=== PATIENT | male | born 1940 | race Caucasian/White ===

== ENCOUNTER 2016-05-05 01:26 | Inpatient (IN) | payer OTHER ==
--- NOTE | 2016-04-25 12:42 | History & Physical Pre-Op ---
General Information and HPI MD Statement: I have seen and personally examined FANI PÉREZ and documented this H&P. The patient is a 75 year old M who presented with a patient stated chief complaint of right sided neck pain radiating to the right shoulder and arm with numbness and weakness. Source of Information: patient, family, old records, PCP Exam Limitations: no limitations History of Present Illness: Jean is a 75-year-old male who has a history of progressively worsening right- sided neck pain radiating to his right shoulder and arm over the last 3 months. He states he has experienced pins and needles as well as numbness and weakness in his right arm and into his fingers. He does occasionally experience numbness in his left first 3 digits but no significant left sided symptoms other than that. He denies any headaches or dizziness nor any imbalance. He has tried conservative measures which have been ineffective and very temporary in alleviating his symptoms. Because of his progressively worsening symptoms and severe stenosis revealed on his MRI scan, he wants nothing more to do with nonsurgical treatment and has been consented for a staged anterior/posterior cervical decompression and fusion C5-T1 on 05/05/2016. Allergies/Medications Allergies: Coded Allergies: No Known Allergies (04/25/16) Home Med list Amitriptyline HCl 25 MG TABLET 1 TAB PO NIGHTLY SLEEP (Reported) Carvedilol 25 MG TABLET 1 TAB PO BID BP (Reported) Ezetimibe (Zetia) 10 MG TABLET 1 TAB PO DAILY CHOL (Reported) Hydrochlorothiazide 25 MG TABLET 1 TAB PO DAILY BP (Reported) Insulin Admin. Supplies (Novopen Echo) 1 EACH INSULN.PEN 5 UNITS SC BID DM 11 (Reported) BREAKFAST AND LUNCH Insulin Glargine,Hum.rec.anlog (Lantus Solostar) 100 UNIT/ML (3 ML) INSULN.PEN 16 UNITS SC NIGHTLY DM 11 (Reported) Latanoprost (Xalatan) 0.005 % DROPS 1 DROP NIGHTLY GLAUCOMA (Reported) Losartan (Cozaar) 100 MG TABLET 1 TAB PO DAILY BP (Reported) Sumatriptan Succinate (Imitrex) 50 MG TABLET 1 TAB PO PRN PRN MIGRAINE ( Reported) Compliance With Home Meds: GOOD Past History Medical History Neurological: migraine, Hx of Meniere's Disease EENT: hearing loss Cardiovascular: hypertension, hyperlipidemia, systolic CHF Respiratory: asthma Gastrointestinal: NONE Hepatic: NONE Renal: NONE Musculoskeletal: chronic back pain, disk herniation, degen joint disease, osteoarthritis, sciatica, spinal stenosis Psychiatric: depression Endocrine: diabetes Blood Disorders: NONE Cancer(s): NONE 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 Ezetrol 10 mg daily Lantus solo 100 mg ( 60 units ) daily at bedtime Somatriptan 50 mg when necessary headache amitriptyline 25 mg daily at bedtime insulin (Novorapid Flax) 100 mg ( 5 units) twice a day Past Family/Social History Family History Relations & Conditions if any MOTHER ( diabetes mellitus). . FATHER ( COPD). . BROTHER ( ASCVD). . Psychosocial History Where Do You Live? Home Who Do You Live With? spouse Smoking Status: Never Smoked ETOH Use: denies use Illicit Drug Use: denies illicit drug use Employment History Employment: Employed Profession/Employer: [employer] Review of Systems Review of Systems Constitutional: Denies: no symptoms, see HPI. EENTM: Reports: see HPI, hearing changes. Cardiovascular: Reports: see HPI, palpitations. Respiratory: Denies: no symptoms, see HPI. GI: Denies: no symptoms, see HPI. Genitourinary: Denies: no symptoms, see HPI. Musculoskeletal: Reports: see HPI, back pain, joint pain, muscle pain, muscle stiffness, neck pain. Skin: Denies: no symptoms, see HPI. Neurological/Psychological: Reports: see HPI, anxiety, depressed, headache, numbness, paresthesia, tingling, weakness. Hematologic/Endocrine: Denies: no symptoms, see HPI. Immunologic/Allergic: Denies: no symptoms, see HPI. All Other Systems: Reviewed and Negative Exam & Diagnostic Data Physical Exam: height: 5 feet 8 inches Weight 71 kg Physical Exam General Appearance Alert, Oriented X3, Cooperative, No Acute Distress Skin No Rashes, No Breakdown, No Significant Lesion HEENT Atraumatic, PERRLA, EOMI, Mucous Membr. moist/pink Neck Supple, No JVD, No thryomegaly, +2 Carotid Pulse wo Bruit Lymphatic Cervical nl Cardiovascular Regular Rate, Normal S1, Normal S2, No Murmurs Lungs Clear to Auscultation, Normal Air Movement Abdomen Normal Bowel Sounds, Soft, No Tenderness, No Masses Neurological Sensation Intact, DIFFUSELY DIMINSHED BANG. 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 2. Hypertension/ systemic congestive heart failure 3. Insulin-dependent diabetes mellitus 4. Depression/ anxiety 5. Migraines 6. History of Mnire's disease 7. Hypercholesterolemia 8. Hearing loss 9. Status post right and left shoulder surgery, last in December 2015. 10. Status post lumbar laminectomy 11. Status post appendectomy 12. Status post right inguinal hernia repair 13. Status post sinus surgery 14. Status post tonsillectomy and adenoidectomy 15. History of asthma plan: Jean is scheduled for a staged anterior/posterior cervical decompression fusion C5-T1 with instrumentation and iliac crest bone grafting on 05/05/2016. We discussed the surgery in full detail, pre-and postoperative course, follow-up care, and anticipated recovery. We also discussed the risks of surgery not to exclude , paralysis, infection, bleeding, continued pain, failure of the surgery, need for future surgery, DVT, vascular injury, CSF leak, hoarseness, or dysphagia. Given these risks, he still wishes to proceed. Any changes in this patient's plan is based on the patient's outpatient clinical presentation. As Ranked By This Provider Problem List: 1. Hypertension 2. Diabetes mellitus, insulin dependent (IDDM), controlled Attending MD Review Statement Attending Statement Attending MD Statement: examined this patient, discuss w/resident/PA/GROUND SERVICE EQUIPMENT MECHANIC, agreed w/resident/PA/GROUND SERVICE EQUIPMENT MECHANIC, discussed with family, reviewed images
[~2016-05-05] VITALS: Ht 160 cm; Wt 77.1 kg
[~2016-05-05 01:26] MED LIST: AMITRIPTYLINE H25 M2 PO; CARVEDILOL25 M1 PO; COZAAR100 M1 PO; HYDROCHLOROTHIA25 M1 PO; IMITREX50 M1 PO; LANTUS SOL100 UNIT/1 SC; NOVOPEN ECHO1 EACH SC; XALATAN2.5 ML; ZETIA10 M1 PO
--- NOTE | 2016-05-05 12:48 | Operative Report ---
Operative/Inv Procedure Report Surgery Date: 05/05/16 Name of Procedure: Anterior cervical discectomy and decompression C5-C6 C6 7 C7-T1 interdiscal cage placement C5-C6 C6 7 C7-T1 with autologous iliac crest. Anterior plate fixation C5 to C7. Harvesting of morselized iliac crest left anterior crest. Reconstruction crest with Master graft. Use of fluoroscopy partial vertebrectomy anterior inferior aspect of C7. Pre-Operative Diagnosis: Degenerative disc disease and nerve compression C5 through T1 Post-Operative Diagnosis: Same additional diagnoses osteoporosis Estimated Blood Loss: 50ml to 100ml Surgeon/Managed Care Liaison: HELEN RIVERA,NICOLE Macedo M.D. Anesthesia: general endotracheal tube Monitors: Nerve monitor Operative/Procedure Note Note: After adequate general anesthesia was achieved the patient's placed in the supine position with the head turned to the left and the shoulders taped to the side. The risks of the neck and left anterior iliac crest were sterilely prepped and draped. A longitudinal incision was created in the right side of the neck and carried sharply through the platysma. A blunt dissection was carried medial to the neurovascular bundle lateral to the visceral structures and a bent needle was placed within the disc space. Rasp was used to identify surgical level. Deep retractors were placed. Discectomies were performed at C5 6 C6 7 and C7-T1. There was severe degenerative changes at C5 6 and C7-T1. After the decompression the endplates were decorticated all 3 levels with the high-speed bur. The trials were used to select the appropriate size cages. An incision was made over the left anterior iliac crest. A subperiosteal dissection was carried lateral to the crest. The oscillating saw was used to collect cortical cancellus iliac crest morselized bone. The wound was then irrigated packed with Master graft and closed with absorbable suture with verenice in the skin. Cancellus bone was packed within the 3 disc cages. The cages were tamped into position well away from the neural canal. Due to technical considerations the decision was made to place the anterior plate from C5 through C7 and avoid fixation to T1. Reasonable purchase was achieved and all 6 screws from C5 to C7. Osteoporosis was identified during instrumentation 100 harvesting of iliac crest. A decision was made to proceed with a posterior procedure given the instability. The plan will be a posterior decompression and wire fixation from C6 to T1 to sure up the anterior fixation and continue with Y decompression. An aortic laminotomy decompression at C5 6. With lateral crest bone graft from C5 to T1 which was harvested anteriorly. The wound was copiously irrigated and a closure of the platysma was performed with absorbable suture the skin was closed with nylon. After placement of sterile dressings the patient was log rolled into the prone position after Medina tongs were placed in the posterior surgery to follow a separate dictation.
--- NOTE | 2016-05-05 15:02 | Operative Report ---
Operative/Inv Procedure Report Surgery Date: 05/05/16 Name of Procedure: Posterior cervical decompression fusion with laminectomies C5 6 C6 7 C7-T1 bilaterally instrumented fusion with 18-gauge wire C5 6 C67 C7-T1 autologous bone graft fusion C5 to T1 placement of Medina tongs removal of Medina tongs use of fluoroscopy. Pre-Operative Diagnosis: Spinal stenosis and myelopathy C5 6 C6 7 C7-T1 Post-Operative Diagnosis: Same. Additional diagnosis osteoporosis. Estimated Blood Loss: 50ml to 100ml Surgeon/Home Health Aid: HELEN RIVERA,NICOLE BAXTER Anesthesia: general endotracheal tube Monitors: Nerve monitoring Operative/Procedure Note Note: After the anterior surgery was performed the patient was moved to the stretcher Medina tongs were applied and the patient was log rolled onto the operating table. The back of the neck and right posterior iliac crest were sterilely prepped and draped. The midline cervical incision was created sharply and carried down bilaterally over the dorsal elements. A metallic optic was placed and fluoroscopy was used to identify surgical level. The high-speed brendon bur and curettes were used to create keyhole foraminotomies with laminectomies at C5 6 C6 7 C7-T1 after the decompression corticotomies were created in the spinous processes of C5-C6 7 and T1. Wires were passed from C5 to C7 and from C6 to T1 wires were twisted tightened and trimmed and bent to the midline. The facets at all 3 levels were decorticated with the pencil point bur. The dorsal elements were decorticated with the high-speed cutting bur. Bone graft harvested during the anterior surgery was then packed within the facet joints and laterally over the decorticated dorsal elements from C5 to T1 the wound was copiously irrigated Gelfoam was laid over the laminotomy sites and a closure of the cervical fascia and subcutaneous tissue was performed with absorbable suture the skin was closed with verenice fluoroscopy showed appropriate position of the hardware prior to closure after placement of sterile dressings the patient was log rolled off the operating table in the Medina tongs were removed and the patient was taken the recovery room.
--- NOTE | 2016-05-05 17:15 | RADIOLOGY REPORT ---
EXAMINATION: FLUOROSCOPY CERVICAL SPINE IN OPERATING ROOM CLINICAL INFORMATION: C5-T1 fusion in OR. COMPARISON: None. TECHNIQUE: Fluoroscopy was provided in the operating room. 3 spot views were obtained of the cervical spine in the AP and lateral projection. FINDINGS: The AP view demonstrates a fusion device in the lower thoracic spine possibly extending to T1 but it is difficult to determine on the AP view and the lateral views are suboptimal and difficult to evaluate. FLUOROSCOPY TIME: 1 minute and 1 second. DOSE: 2.86 Gycm2. IMPRESSION: Lower cervical spine fusion.
[2016-05-05 18:00] VITALS: BP 144/82
--- NOTE | 2016-05-05 18:12 | PN- Orthopedic ---
Subjective Subjective: Patient received on general surgical floor. Has complaints of pain presently but denies difficulty speaking, breathing, and swallowing. He denies chest pain , shortness of breath and difficulty breathing. He denies nausea and vomitting. He denies numbess to bilateral upper extremities. Objective Vital Signs and I&Os Intake & Output 05/05 1600 05/05 0800 05/05 0000 05/04 1600 05/04 0800 05/04 0000 Intake Total Output Total Balance Patient 170 lb Weight bp 150/70 HR 91 Physical Exam: General: Appearing fatigued but arousable to voice, oriented x3 Cardiac: RRR, s1s2 Pulm: CTA b Abdomen: Non-tender, non-distended Extremities: Moves all extremities, distal sensation intact. Motor 5/5 in bilateral upper extremitiy ultrasonic hand solderer. Skin well perfused. Bilateral calves soft and non-tender Surgical site: Neck: A/P dressing blood tinged, no evidence of hematoma, soft collar in place Current Medications: Current Medications Sig/Milind Start time Last Medication Dose Route Stop Time Status Admin Acetaminophen 650 MG Q4P PRN 05/05 1845 AC PO Amitriptyline HCl 25 MG AT BEDTIME 05/05 2200 AC PO Bisacodyl 10 MG DAILY NEEDED PRN 05/05 1845 AC IL Calcium 600 MG BID 05/05 2200 AC PO Carvedilol 25 MG BID 05/05 2200 AC PO Cefazolin Sodium 1,000 MG IQ8 05/06 0000 AC IV 05/06 1601 Cefazolin Sodium 4,000 MG .STK-MED ONE 05/05 1411 DC IV 05/05 1412 Cefazolin Sodium 2,000 MG ONCE 05/05 0000 NR IV 05/05 2359 Cholecalciferol 1,000 IU DAILY 05/06 1000 AC PO Docusate Sodium 100 MG BID 05/05 2200 AC PO Ezetimibe 10 MG DAILY 05/06 1000 AC PO Hydrochlorothiazide 25 MG DAILY 05/06 1000 AC PO Insulin Aspart 5 UNITS 0800,1200 05/06 0800 CAN SC Insulin Detemir 16 UNITS QPM 05/05 2200 AC SC Insulin Human Regular 0 TIDAC/HS 05/05 2100 AC SC Lactated Ringer's 1,000 ML Q13H 05/05 1900 AC IV Latanoprost 1 GTT AT BEDTIME 05/05 2200 AC OPH Losartan Potassium 100 MG DAILY 05/06 1000 AC PO Magnesium Hydroxide 30 ML AT BEDTIME PRN 05/05 1900 AC PO Morphine Sulfate 1 MG Q3P PRN 05/05 1845 AC IV Multivitamins 1 TAB DAILY 05/06 1000 AC PO Ondansetron HCl 4 MG Q6P PRN 05/05 1845 AC IV Oxycodone/ 1 TAB Q4P PRN 05/05 1845 AC Acetaminophen PO Oxycodone/ 2 TAB Q4P PRN 05/05 1845 AC Acetaminophen PO Patient Medication 1 UNIT ONE NR 05/05 1630 NM Teaching ED 05/05 1700 Patient Medication 1 UNIT ONE NR 05/05 1630 NM Teaching ED 05/05 1700 Patient Medication 1 UNIT ONE NR 05/05 1630 NM Teaching ED 05/05 1700 Trimethobenzamide HCl 200 MG Q6P PRN 05/05 1845 AC IM Assessment/Plan Assessment/Plan This is a 75 year old male, POD 0, s/p a/p cdf c5-t1 with instrumentation for cervical myelopathy. PMH includes diabetes, htn, hld, depression. -Medicine team consulted for comanagement -OOB with PT, soft collar -Percocet and morphine for pain -Consistent carbohydrate diet -DC gonzalez tonight -ALPS for dvt ppx -Ancef for 24 hrs for abx ppx Core Measures/Miscellaneous Venous Thromboembolism VTE Risk Factors: Age > 40, Surgery VTE Contraindications: No Contraindications VTE Prophylaxis Ordered Inpt: Mech & Pharm VTE Diagnosis: No Beta Louis Is Beta Louis a Home Med? No Antibiotics Is Patient on Antibiotics? Yes If Yes: prophylaxis
--- NOTE | 2016-05-05 18:56 | Patient Discharge Instructions ---
Acute Coronary Syndrome Inclusion Criteria At DC or during hospital stay patient has or had the following: ACS DIAGNOSIS No Discharge Core Measures Meds if any: Prescribed or Continued at Discharge Meds if any: NOT Prescribed or Continued at Discharge Congestive Heart Failure Inclusion Criteria At DC or during hospital stay patient has or had the following: CHF DIAGNOSIS No Discharge Core Measures Meds if any: Prescribed or Continued at Discharge Meds if any: NOT Prescribed or Continued at Discharge Cerebrovascular accident Inclusion Criteria At DC or during hospital stay patient has or had the following: CVA/TIA Diagnosis No Discharge Core Measures Meds if any: Prescribed or Continued at Discharge Meds if any: NOT Prescribed or Continued at Discharge Venous thromboembolism Inclusion Criteria VTE Diagnosis No VTE Type NONE VTE Confirmed by (Test) NONE Discharge Core Measures - Per Current guidelines, there needs to be overlap - treatment for the first 5 days of Warfarin therapy. - If discharged on Warfarin prior to 5 days of - overlap therapy, the patient will need to be - assessed for post discharge needs including - *Post discharge parental anticoagulation - *Warfarin and/or parental anticoagulation education - *Follow up date to check INR post discharge At least 5 days overlap therapy as Inpatient No Meds if any: Prescribed or Continued at Discharge Note: Overlap Therapy is Warfarin and Anticoagulant Meds if any: NOT Prescribed or Continued at Discharge
[2016-05-05] MEDS ORDERED: CALCIUM CARBON500 M2 PO (18:57)
[2016-05-05] MEDS ORDERED: BISAC-EVAC10 M1 PR (18:58)
[2016-05-05] MEDS ORDERED: DOCUSATE SODIU100 M3 PO (18:58)
[2016-05-05] MEDS ORDERED: MILK OF MA400 MG/52 PO (18:58)
[2016-05-05] MEDS ORDERED: ONE DAILY MULT1 EAC2 PO (18:59)
[2016-05-05] MEDS ORDERED: PERCOCET 5-3251 EACH PO (19:00)
[2016-05-05] MEDS ORDERED: VITAMIN D31000 UNI2 PO (19:00)
--- NOTE | 2016-05-05 20:09 | Cons- Medical ---
JUVENTINO BRAY 05/05/16 2003: General Information and HPI Consulting Request Date of Consult: 05/05/16 Requested By: NICOLE CERVANTES MD Reason for Consult: Post-op evaluation Source of Information: patient, old records History of Present Illness: This is 75-year-old male with past medical history of hypertension, hyperlipidemia, hearing loss, migraine, diabetes mellitus, osteoarthritis, depression, migraine headache. Patient is status post Posterior cervical decompression fusion with laminectomies C5 6 C6 7 C7-T1 bilaterally instrumented fusion with 18-gauge wire C5 6 C67 C7-T1 autologous bone graft fusion C5 to T1 placement of Medina tongs removal of Medina tongs use of fluoroscopy, also Anterior cervical discectomy and decompression C5-C6 C6 7 C7-T1 interdiscal cage placement C5-C6 C6 7 C7-T1 with autologous iliac crest. Anterior plate fixation C5 to C7. Harvesting of morselized iliac crest left anterior crest. Reconstruction crest with Master graft. Use of fluoroscopy partial vertebrectomy anterior inferior aspect of C7. Patient had history of right shoulder and arm pain for the last 3 months, the patient was hospitalized for that reason and the MRI that was done outside the hospital showed:Severe spinal stenosis of the cervical spine at C5-6, C6-7, and C7-T1 with a syrinx. Patient still complaining of pain status post the procedure. Patient reports numbness and stinging sensation which is chronic due to his underlying diabetes mellitus. Otherwise doing fine, patient denies any chest pain shortness of breath fever or chills abdominal pain, nausea, vomiting, diarrhea, headache, dizziness. Allergies/Medications Allergies: Coded Allergies: No Known Allergies (04/25/16) Home Med List: Amitriptyline HCl 25 MG TABLET 1 TAB PO NIGHTLY SLEEP (Reported) Bisacodyl (Bisac-Evac) 10 MG SUPP.RECT 10 MG IA DAILY NEEDED PRN CONSTIPATION Calcium Carbonate 500 MG CALCIUM (1,250 MG) TABLET 600 MG PO BID BONE HEALTH Carvedilol 25 MG TABLET 1 TAB PO BID BP (Reported) Cholecalciferol (Vitamin D3) 1,000 UNIT TABLET 1,000 IU PO DAILY BONE HEALTH Docusate Sodium 100 MG CAPSULE 100 MG PO BID CONSTIPATION Ezetimibe (Zetia) 10 MG TABLET 1 TAB PO DAILY CHOL (Reported) Hydrochlorothiazide 25 MG TABLET 1 TAB PO DAILY BP (Reported) Hydromorphone HCl (Dilaudid) 2 MG TABLET 1-2 TAB PO Q3P PRN PAIN Insulin Admin. Supplies (Novopen Echo) 1 EACH INSULN.PEN 5 UNITS SC BID DM 11 (Reported) BREAKFAST AND LUNCH Insulin Glargine,Hum.rec.anlog (Lantus Solostar) 100 UNIT/ML (3 ML) INSULN.PEN 16 UNITS SC NIGHTLY DM 11 (Reported) Latanoprost (Xalatan) 0.005 % DROPS 1 DROP NIGHTLY GLAUCOMA (Reported) Losartan (Cozaar) 100 MG TABLET 1 TAB PO DAILY BP (Reported) Magnesium Hydroxide (Milk Of Magnesia) 400 MG/5 ML ORAL.SUSP 30 ML PO AT BEDTIME PRN CONSTIPATION Multivitamin (One Daily Multivitamin) 1 EACH TABLET 1 TAB PO DAILY GENERAL HEALTH Sumatriptan Succinate (Imitrex) 50 MG TABLET 1 TAB PO PRN PRN MIGRAINE ( Reported) Current Medications: Current Medications Sig/Milind Start time Last Medication Dose Route Stop Time Status Admin Acetaminophen 650 MG Q4P PRN 05/05 1845 AC PO Amitriptyline HCl 25 MG AT BEDTIME 05/05 2200 AC PO Bisacodyl 10 MG DAILY NEEDED PRN 05/05 1845 AC IA Calcium 600 MG BID 05/05 2200 AC PO Carvedilol 25 MG BID 05/05 2200 AC PO Cefazolin Sodium 1,000 MG IQ8 05/06 0000 AC IV 05/06 1601 Cefazolin Sodium 4,000 MG .STK-MED ONE 05/05 1411 DC IV 05/05 1412 Cefazolin Sodium 2,000 MG ONCE 05/05 0000 NR IV 05/05 2359 Cholecalciferol 1,000 IU DAILY 05/06 1000 AC PO Docusate Sodium 100 MG BID 05/05 2200 AC PO Ezetimibe 10 MG DAILY 05/06 1000 AC PO Hydrochlorothiazide 25 MG DAILY 05/06 1000 AC PO Insulin Aspart 5 UNITS 0800,1200 05/06 0800 CAN SC Insulin Detemir 16 UNITS QPM 05/05 2200 AC SC Insulin Human Regular 0 TIDAC/HS 05/05 2100 AC SC Lactated Ringer's 1,000 ML Q13H 05/05 1900 AC IV Latanoprost 1 GTT AT BEDTIME 05/05 2200 AC OPH Losartan Potassium 100 MG DAILY 05/06 1000 AC PO Magnesium Hydroxide 30 ML AT BEDTIME PRN 05/05 1900 AC PO Morphine Sulfate 1 MG Q3P PRN 05/05 1845 AC IV Multivitamins 1 TAB DAILY 05/06 1000 AC PO Ondansetron HCl 4 MG Q6P PRN 05/05 1845 AC IV Oxycodone/ 1 TAB Q4P PRN 05/05 1845 AC Acetaminophen PO Oxycodone/ 2 TAB Q4P PRN 05/05 1845 AC Acetaminophen PO Patient Medication 1 UNIT ONE NR 05/05 1630 DC Teaching ED 05/05 1700 Patient Medication 1 UNIT ONE NR 05/05 1630 DC Teaching ED 05/05 1700 Patient Medication 1 UNIT ONE NR 05/05 1630 DC Teaching ED 05/05 1700 Trimethobenzamide HCl 200 MG Q6P PRN 05/05 1845 AC IM Review of Systems Review of Systems Constitutional: Reports: see HPI. Cardiovascular: Reports: see HPI. Respiratory: Reports: see HPI. GI: Reports: see HPI. Genitourinary: Reports: see HPI. Musculoskeletal: Reports: see HPI. Past History Medical History Neurological: migraine, Hx of Meniere's Disease EENT: hearing loss Cardiovascular: hypertension, hyperlipidemia, systolic CHF Respiratory: asthma Gastrointestinal: NONE Hepatic: NONE Renal: NONE Musculoskeletal: chronic back pain, disk herniation, degen joint disease, osteoarthritis, sciatica, spinal stenosis Psychiatric: depression Endocrine: diabetes Blood Disorders: NONE Cancer(s): NONE GENERAL AGENT/Reproductive: NONE Surgical History Surgical History: appendectomy, arthroscopy (right and left shoulder x 8), hernia repair-inguinal (right inguinal;), laminectomy, s/p T & A s/p sinus surgery Family History Relations & Conditions If Any: MOTHER ( diabetes mellitus). . FATHER ( COPD). . BROTHER ( ASCVD). . Psychosocial History Where Do You Live? Home Who Do You Live With? spouse Smoking Status: Never Smoked ETOH Use: denies use Illicit Drug Use: denies illicit drug use Functional Ability ADLs Independent: dressing, eating, toileting, bathing. Ambulation: independent IADLs Independent: shopping, housework, finances, food prep, telephone, transportation , medication admin. Employment History Employment: Employed Profession/Employer: [employer] Exam & Diagnostic Data Last 24 Hrs of Vital Signs/I&O Bp:144/82 HR:77 O2 sat:98% RR:18 Temp:98.0 Physical Exam General Appearance: well developed/nourished, alert, awake, mild distress, C- collar noted Eyes: Bilateral: PERRL, EOMI. Ears, Nose, Throat: normal pharynx Respiratory: normal breath sounds, chest non-tender, no respiratory distress, quiet respiration Cardiovascular: regular rate/rhythm Peripheral Pulses: 2+ radial (R), 2+ radial (L) Gastrointestinal: normal bowel sounds, soft, non-tender Extremities: no edema Last 24 Hrs of Labs/Oj: He.8 Hct:31.6 MCV:93.2 plt count: 104 Diagnostic Data CXR Results EXAM TYPE: RAD - XRY-CERV SPINE 3 VIEWS OR LESS EXAMINATION: FLUOROSCOPY CERVICAL SPINE IN OPERATING ROOM CLINICAL INFORMATION: C5-T1 fusion in OR. COMPARISON: None. TECHNIQUE: Fluoroscopy was provided in the operating room. 3 spot views were obtained of the cervical spine in the AP and lateral projection. FINDINGS: The AP view demonstrates a fusion device in the lower thoracic spine possibly extending to T1 but it is difficult to determine on the AP view and the lateral views are suboptimal and difficult to evaluate. FLUOROSCOPY TIME: 1 minute and 1 second. DOSE: 2.86 Gycm2. IMPRESSION: Lower cervical spine fusion. Assessment/Plan Assessment/Plan This is 75-year-old male with past medical history of hypertension, hyperlipidemia, hearing loss, migraine, diabetes mellitus, osteoarthritis, depression, migraine headache. Patient is status post Anterior and Posterior cervical. Recommendation: -Please check Accu-Chek and vital signs -Accu-Chek, consistent carbohydrate diet with short-acting insulin sliding scale. -Restart the patient home medication. -EKG in the morning to get the baseline. -DC Jones catheter if no longer needed. -Recheck CBC in the morning. -We'll continue follow the patient. Consult Acknowledgment - Thank you for your consult request. ROBERT PEARSON 05/05/16 2627: Assessment/Plan Consult Acknowledgment - Thank you for your consult request. Attending MD Review Statement Attending Statement Attending MD Statement: examined this patient, discuss w/resident/PA/DIRECTOR OF MIDWIFERY/STAFF MIDWIFE, agreed w/resident/PA/DIRECTOR OF MIDWIFERY/STAFF MIDWIFE, reviewed EMR data (avail), reviewed images, amended to note Attending Assessment/Plan: PMHx: HTN, IDDM, HLD, hearing loss, osteoarthritis Patient underwent cervical decompression fusion with laminectomy. We were asked for medical comanagement for diabetes hypertension. Patient's PCP in [facility], [place], regularly follows up with him. Patient denies chest pain, shortness of breath, abdominal pain, nausea vomiting, constipation, fever or any weakness. He had pain bilateral upper extremity after the surgery which is much better now. Patient underwent 2-D echo before surgery which shows mild concentric LVH with ejection fraction of 65%. Patient denies any dyspnea on exertion, orthopnea, extremity swellings. Communication barrier because of language and hearing loss. Vitals: Pulse 91, blood pressure 150/75 On exam: A O 3, no acute distress, cervical collar present, no focal neurological deficit, cranial nerves intact, mucosa moist. CVS: S1-S2, RRR. RS: Bilateral air entry clear present abdomen: Obese, soft, NT, bowel sounds present. No pedal edema no obvious skin rashes or inflammations. Labs: CBC, BMP, LFT reviewed unremarkable. A and P #1 DM: Patient uses insulin at home, continue his basal insulin (long-acting), 16 units as ordered, continue short-acting (patient currently appears to be on regular: Change to aspart) pre-meal sliding scale. Accu-Cheks pre-meal and at bedtime. If patient is not nothing by mouth. If patient is nothing by mouth continue nothing by mouth sliding scale short-acting insulin. #2 HTN: Continue Coreg, losartan, HCTZ (all his home medications) #3 continue amitriptyline Appreciate consult we will follow along.
[2016-05-06 00:07] VITALS: BP 150/82
--- NOTE | 2016-05-06 01:26 | NUR ---
1800 PATIENT ARRIVED TO FLOOR. ALERT AND ORIENTED X 3. VITAL SIGNS STABLE DENIES CHEST PAIN. + PULSES. LUNGS CLEAR. ON 3L O2 VIA NC. BED LOW AND LOCKED. CALL LIGHT WITHIN REACH. 1999 ON 1.5L OXYGEN VIA NASAL CANNULA. O2SAT 94%. WILL CONTINUE TO MONITOR
[2016-05-06 08:24] LABS: ABSOLUTE BASOPHIL COUNT 0 /CUMM (0.0-0.2); ABSOLUTE EOSINOPHIL COUNT 0.1 /CUMM (0.0-0.7); ABSOLUTE LYMPH COUNT 0.5 /CUMM (1.2-3.4)
[2016-05-06 08:34] VITALS: BP 144/80
[2016-05-06 09:13] VITALS: BP 144/68
[2016-05-06 09:14] LABS: ABSOLUTE GRANULOCYTE CT 8.5 /CUMM (1.4-6.5); ABSOLUTE MONOCYTE COUNT 0.6 /CUMM (0.10-0.60); BASOPHIL % 0 % (0.0-2.0); EOSINOPHIL % 1.1 % (0-5); GRANULOCYTE % 88.2 % (42.2-75.2); MEAN CORPUSCULAR HGB 31.9 PG (27.0-31.0); MEAN CORPUSCULAR HGB CONC 34.2 G/DL (33.0-37.0); MEAN CORPUSCULAR VOLUME 93.2 FL (80.0-94.0); PLATELET COUNT 104 /CUMM (130-400); RBC DISTRIBUTION WIDTH 12.5 % (11.5-14.5); WHITE BLOOD CELL COUNT 9.6 /CUMM (4.8-10.8)
--- NOTE | 2016-05-06 09:19 | PN- Orthopedic ---
Subjective Subjective: POD #1 s/p anterior/posterior cervical fusion with ICBG. Resting uncomfortably in bed, complaining of pain to neck. States he has not received anything since earlier in the night. Denies N/V, F/C, CP/SOB. Yet to ambulate. Voiding spontaneously. Objective Vital Signs and I&Os Vital Signs Date Time Temp Pulse Resp B/P Pulse O2 O2 Flow FiO2 Ox Delivery Rate 05/06 0834 98.4 98 20 144/80 94 Room Air 05/06 0007 98.2 102 20 150/82 96 05/06 0000 94 Nasal 1.5L Cannula 05/05 2137 91 150/75 05/05 1800 97.9 77 20 144/82 98 Nasal 3.0L Cannula 05/05 1800 98 Nasal 3.0L Cannula Intake & Output 05/06 1600 05/06 0800 05/06 0000 05/05 1600 05/05 0800 05/05 0000 Intake Total 850 Output Total 750 Balance 100 Intake, IV 600 Intake, Oral 250 Output, Urine 750 Patient 170 lb Weight Physical Exam: Gen: AAox3 in NAD HEENT: soft collar removed, dressing C/D/I. No evidence of soft tissue mass to suggest hematoma. Cor: S1+S2+ Lungs: CTA gema Abd: soft, NT, ND, +BSx4 Ext: strength 5/5 in gema upper extremities. Sensation grossly intact. Palpable radial pulses. Results Last 48 Hours of Labs: Laboratory Tests 05/06 0615 Hematology CBC w Diff Pending WBC Pending RBC Pending Hgb Pending Hct Pending MCV Pending MCH Pending RDW Pending Plt Count Pending MPV Pending PUBS MCHC Pending Assessment/Plan Assessment/Plan A: POD #1 s/p ACDF/PCDF with ICBG; AVSS. Plan: Regular diet. To get pain meds after interview (RN aware). OOB and ambulate as tolerated. IVF stopped. Continue perioperative abx for surgical prophylaxis (scheduled to be stopped after 3 doses). Core Measures/Miscellaneous Venous Thromboembolism VTE Risk Factors: Age > 40, Surgery VTE Contraindications: No Contraindications VTE Prophylaxis Ordered Inpt: Mech & Pharm VTE Diagnosis: No Beta Louis Is Beta Louis a Home Med? No Antibiotics Is Patient on Antibiotics? Yes If Yes: prophylaxis
[2016-05-06 09:21] LABS: HEMATOCRIT 31.6 % (42-52); RED BLOOD CELL CT 3.39 /CUMM (4.70-6.10)
--- NOTE | 2016-05-06 10:16 | PN- Att Addend ---
Attending Addendum Attending Brief Note Patient seen and examined. Sitting in his chair. Complains of neck pain. Some abdominal discomfort. Denies nausea vomiting. Reports last bowel movement was 3 days prior. His blood glucose levels have been acceptable. Vital Signs Date Time Temp Pulse Resp B/P Pulse O2 O2 Flow FiO2 Ox Delivery Rate 05/06 0913 99 144/68 05/06 0913 99 144/68 05/06 0834 98.4 98 20 144/80 94 Room Air 05/06 0007 98.2 102 20 150/82 96 05/06 0000 94 Nasal 1.5L Cannula 05/05 2137 91 150/75 05/05 1800 97.9 77 20 144/82 98 Nasal 3.0L Cannula 05/05 1800 98 Nasal 3.0L Cannula Gen. appearance: Not in respiratory distress. HEENT: Anicteric, no pallor. Neck collar in place Heart: S1-S2 regular Lungs: Good entry bilaterally, clear to auscultation Abdomen: Soft, nontender with normal bowel sounds Extremities: No pedal edema. Skin intact with no rashes. Laboratory Tests 05/06/16 0615: CBC w Diff MAN DIFF ORDERED, RBC 3.39 L, MCV 93.2, MCH 31.9 H, RDW 12.5, MPV 9.0, Gran % 88.2 H, Lymphocytes % 4.7 L, Monocytes % 6.0, Eosinophils % 1.1, Basophils % 0 L, Absolute Granulocytes 8.5 H, Segmented Neutrophils 81 H, Band Neutrophils 9 H, Absolute Lymphocytes 0.5 L, Lymphocytes 3 L, Monocytes 4, Absolute Monocytes 0.6, Eosinophils 2, Absolute Eosinophils 0.1, Basophils 1, Absolute Basophils 0, Platelet Estimate DECREASED, Hypochromic-Microcytic 1+, Anisocytosis 1+, PUBS MCHC 34.2 Problems: 1. Insulin-dependent diabetes mellitus 2. Constipation 3. Status post neck surgery 4. Anemia; likely secondary to expected blood loss. 5. Prerenal azotemia Plan: -Continue patient on his home insulin regimen. -IV fluids have been discontinued. Recommend repeating his serum chemistry t omorrow to ensure that his prerenal azotemia has improved as well. -His anemia is likely secondary to expected blood loss. Would recommend ensuring his hemoglobin level is stable prior to discharge. -Please administer his bowel regimen to resolve his constipation. If abdominal discomfort persists after moving his bowels would recommend an abdominal x-ray. -Thank you for this consultation. We'll continue to follow. Case discussed with nursing staff.
[2016-05-06] MEDS ORDERED: DILAUDID2 M1 PO (15:01)
--- NOTE | 2016-05-06 15:02 | Surg Short-stay <48hrs Dis Sum ---
Visit Information Visit Dates Admission Date: 05/05/16 Discharge Date: 05/06/16 Surgical Short Stay DC Summary Admission Diagnosis: Spinal stenosis and myelopathy C5 6 C6 7 C7-T1 Final Diagnosis: SAME Procedure(s): Anterior cervical discectomy and decompression C5-C6 C6 7 C7-T1 interdiscal cage placement C5-C6 C6 7 C7-T1 with autologous iliac crest. Anterior plate fixation C5 to C7. Harvesting of morselized iliac crest left anterior crest. Reconstruction crest with Master graft. Use of fluoroscopy partial vertebrectomy anterior inferior aspect of C7. Posterior cervical decompression fusion with laminectomies C5 6 C6 7 C7-T1 bilaterally instrumented fusion with 18-gauge wire C5 6 C67 C7-T1 autologous bone graft fusion C5 to T1 placement of Medina tongs removal of Medina tongs use of fluoroscopy. Summary/Significant Findings: Mr. Suarez is a 75 year old male admitted on after an anterior and posterior cervical discectomy/fusion by Dr. Jude Renee. He was ultimately transferred to the surgical floor in stable condition. His diet was advanced and he was able to void spontaneously. On POD #1, his pain was not controlled well and he was converted from Percocet to Dilaudid PO. He did well with Dilaudid and was discharged home, with outpatient follow-up with Dr. Renee as scheduled. Condition at Discharge: stable Discharge Disposition: home or self care Discharge instructions provided to patient/family: Yes Post discharge follow-up plan: Dr. Renee per schedule
== END 2016-05-06 17:08 | DRG 472 ==
LOC: ENRESERVDT → ENRESERVTM → SDA 01:26 → 2NB 17:35
PROVIDERS: Orthopaedic Surgery Orthopaedic Surgery of the Spine; ADMIT Orthopaedic Surgery Orthopaedic Surgery of the Spine
PROC: 0RB30ZZ Excision of Cervical Vertebral Disc, Open Approach (ICD-10-PCS; principal; 2016-05-05)
PROC: 0RG20A0 Fusion of 2 or more Cervical Vertebral Joints with Interbody Fusion Device, Anterior Approach, Anterior Column, Open Approach (ICD-10-PCS; 2016-05-05)
PROC: 0RB50ZZ Excision of Cervicothoracic Vertebral Disc, Open Approach (ICD-10-PCS; 2016-05-05)
PROC: 0RG40A0 Fusion of Cervicothoracic Vertebral Joint with Interbody Fusion Device, Anterior Approach, Anterior Column, Open Approach (ICD-10-PCS; 2016-05-05)
DX: M48.02 Spinal stenosis, cervical region (principal); M50.03 Cervical disc disorder with myelopathy, cervicothoracic region; M48.03 Spinal stenosis, cervicothoracic region
CPT/HCPCS: 36415; 72040; 88304; 97110-GO; 97161-GP; 97530-GO; C9399; J0690; J2270; J2405; J3250; J3490; J7120

== ENCOUNTER 2016-09-28 02:41 | Inpatient (IN) | payer OTHER ==
[~2016-09-28] VITALS: Ht 154.9 cm; Wt 77.1 kg
[~2016-09-28 02:41] MED LIST changes: +BISAC-EVAC10 M1 PR; +CALCIUM CARBON500 M2 PO; +DILAUDID2 M1 PO; +DOCUSATE SODIU100 M3 PO; +MILK OF MA400 MG/52 PO; +ONE DAILY MULT1 EAC2 PO; +PERCOCET 5-3251 EACH PO; +VITAMIN D31000 UNI2 PO
--- NOTE | 2016-09-28 15:23 | Operative Report ---
Operative/Inv Procedure Report Surgery Date: 09/28/16 Name of Procedure: Lumbosacral inspection of fusion mass L5-S1. Revision laminectomies L4 L5 S1. Interdiscal cage placement L5-S1 left side with autologous iliac crest morselized bone implant. Harvesting of morselized bone right posterior iliac crest. Reconstruction of donor site with Master graft implant. Pedicle screw placement L5-S1 bilaterally. Discectomy foraminotomy L4 5 L5-S1. Neuro lysis right L5 nerve root. Lateral intertransverse process fusion L4 5 L5-S1. Pre-Operative Diagnosis: Spinal stenosis L4 5 L5-S1 Post-Operative Diagnosis: Same Estimated Blood Loss: 950cc Surgeon/Group Contract Analyst: HELEN RIVERA,NICOLE BAXTER Anesthesia: general endotracheal tube Monitors: Neuro Operative/Procedure Note Note: After adequate general anesthesia was achieved the patient was placed in the prone position with the shoulders and arms in neutral position and all bony prominences padded. The back was sterilely prepped and draped along with the midline and right posterior iliac crest. The previous incision was used and carried down sharply over the dorsal elements with electrocautery of the scalpel. The deep retractors were placed. There are areas where there islands of bone graft which were easily removed there was an obvious nonunion at L5-S1. There is bone graft within the laminectomy area which was removed from the canal with the Kerrison and curettes. This was on the right side. There is motion between L4 5 and L5-S1. The high-speed bur was used to take down the degenerative tissue and bone graft. Laminectomies of L4 and L5 were performed on the right side the dissection was carried laterally and the discectomy was performed at that level on the right side. There is extreme thickening of the ligamentum flavum causing severe foraminal stenosis and a partial facetectomy was performed decompressing the associated L4 nerve root. The high-speed bur was used to debride the scar tissue and bone graft at L5-S1 on the right side there is severe stenosis with complete obliteration of the canal with degenerative tissue graft and scar tissue which was all debrided under lysis of the L5 nerve root was performed to free it up was markedly trapped in scar tissue and degenerative tissue along with disc material. Spurs which were performed posteriorly at the L5-S1 disc were debrided with the cystic severe stenosis. The disc space was debrided with the interdiscal cage instrumentation. Using a 12 mm thick cage was identified as appropriate. Through a separate incision in the iliac crest on the right side the dissection was carried medial and lateral to the crest. The osteotomes and curettes were used to collect cortical cancellus morcellized bone graft the wound was irrigated packed with Master graft and closed in layers with absorbable suture with verenice in the skin. A 12 mm cage was packed with cancellus iliac crest bone graft and tamped into position under fluoroscopic guidance. The cage was very stable and there was slight distraction created between the disc space from the cage was placed. Laminectomies were created on the left side in preparation for placement of pedicle screws due to the severe degenerative changes of the disc space in order to accommodate identification of anatomy. Corticotomies were created and the pedicles of L4 and L5 bilaterally the pedicles were tapped and screws were placed in direct vision was used to monitor the pedicles and there was no evidence of metal within the canal. Neuro monitoring was performed in all 4 screws screws showed no response. Rods were placed the right side was compress the left side was held in neutral. Counter torque device was used to tighten the pedicle screw caps. The facet joints at L5 and S1 were decorticated with a pencil point bur the the lateral intertransverse process region was decorticated bilaterally at all 5 S1 unilateral at L4 5 on the right the morselized autologous bone graft was packed at L4 5 and L5-S1 bilaterally. The wound was copiously irrigated the construct was checked in AP lateral and oblique views and found to be appropriate using fluoroscopy. Was again irrigated Gelfoam was laid over the laminotomy sites and a closure the lumbodorsal fascia was performed with absorbable suture the skin was closed with verenice Cell Saver was used throughout the case. After placement of sterile dressings the patient was log rolled off the operating table
--- NOTE | 2016-09-28 16:08 | RADIOLOGY REPORT ---
EXAMINATION: XR LUMBOSACRAL SPINE CLINICAL INFORMATION: Instrumented lumbar laminectomy and fusion L4-S1. COMPARISON: None TECHNIQUE: Intraoperative fluoroscopic imaging of the lumbosacral spine was utilized. NUMBER OF SAVED IMAGES: 2 (AP and lateral views of the lumbosacral junction) FLUOROSCOPY TIME: 0.12 minutes FINDINGS: The submitted images show evidence of discectomy and fusion at L5-S1. The short posterior fusion rods and transpedicular screws are in their expected positions. IMPRESSION: Status post L5-S1 fusion.
[2016-09-28 16:18] LABS: ABSOLUTE BASOPHIL COUNT 0 /CUMM (0.0-0.2); ABSOLUTE EOSINOPHIL COUNT 0.1 /CUMM (0.0-0.7); ABSOLUTE LYMPH COUNT 1.7 /CUMM (1.2-3.4); BASOPHIL % 0.3 % (0.0-2.0); EOSINOPHIL % 0.7 % (0-5)
[2016-09-28 16:22] LABS: ABSOLUTE GRANULOCYTE CT 10.9 /CUMM (1.4-6.5); ABSOLUTE MONOCYTE COUNT 0.7 /CUMM (0.10-0.60); MEAN CORPUSCULAR HGB 30.9 PG (27.0-31.0); MEAN CORPUSCULAR VOLUME 90.9 FL (80.0-94.0); MEAN PLATELET VOLUME 7.9 FL (7.4-10.4); PLATELET COUNT 120 /CUMM (130-400); RBC DISTRIBUTION WIDTH 13.6 % (11.5-14.5)
[2016-09-28 16:23] LABS: WHITE BLOOD CELL COUNT 13.5 /CUMM (4.8-10.8)
[2016-09-28 16:24] LABS: GRANULOCYTE % 81.2 % (42.2-75.2); HEMATOCRIT 34.6 % (42-52)
[2016-09-28] MEDS ORDERED: ONE DAILY MULT1 EAC2 PO (17:04)
[2016-09-28] MEDS ORDERED: VITAMIN D31000 UNI2 PO (17:04)
[2016-09-28] MEDS ORDERED: TYLENOL325 M1 PO (17:04)
[2016-09-28] MEDS ORDERED: DOCUSATE SODIU100 M3 PO (17:04)
[2016-09-28] MEDS ORDERED: MILK OF MA400 MG/52 PO (17:04)
[2016-09-28] MEDS ORDERED: CALCIUM CARBON500 M2 PO (17:04)
[2016-09-28] MEDS ORDERED: PERCOCET 5-3251 EACH PO (17:04)
[2016-09-28] MEDS ORDERED: BISAC-EVAC10 M1 PR (17:04)
[2016-09-28 18:02] VITALS: BP 110/64
--- NOTE | 2016-09-28 18:02 | NUR ---
AT THIS TIME PT ADMITTED TO ROOM 206- FROM THE PACU, PT VSS, DENIES CP, DENIES SOB, A/O/VX3, ON 2LNC, DSG TO LOWER BACK C/D/I, +CMS, C/O 10 OUT OF 10 PAIN, PRN PAIN MED GIVEN, FALL RISK PRECAUTIONS IN PLACE, SAFETY MAINTAINED, NEEDS WITHIN REACH
--- NOTE | 2016-09-28 19:23 | Cons- Medical ---
JAX JEFFERS 09/28/16 1829: General Information and HPI Consulting Request Date of Consult: 09/28/16 Requested By: NICOLE CERVANTES MD Reason for Consult: Co management of diabetes and Source of Information: patient, family Exam Limitations: no limitations History of Present Illness: Patient is 75-year-old male, resident of [facility], past medical history significant for insulin-dependent diabetes mellitus, hypertension and hyperlipidemia,hearing loss, migraine, diabetes mellitus, osteoarthritis, depression, migraine headache,sever spinal stenosis has been admitted to [facility] under surgical service for spinal stenosis surgery admitted to [facility] for spinal surgery. Patient had surgery today under general anesthesia involving Lumbosacral inspection of fusion mass L5-S1 with revision laminectomies L4 L5 S1. Pt tolerated the surgery well, still reports pain around the surgical site. Denies any dizziness, trouble breathing palpitations. Denies any nausea vomiting abdominal discomfort. No urinary bowel habit complaints. Vitals are stable. Recent blood sugar level is 173. Diet has been resumed, but patient's appetite still remains low. Allergies/Medications Allergies: Coded Allergies: No Known Allergies (04/25/16) Home Med List: Acetaminophen (Tylenol) 325 MG TABLET 650 MG PO Q4P PRN TEMP > 101.5 Bisacodyl (Bisac-Evac) 10 MG SUPP.RECT 10 MG AL DAILY NEEDED PRN CONSTIPATION Calcium Carbonate 500 MG CALCIUM (1,250 MG) TABLET 600 MG PO BID [facility] Carvedilol 25 MG TABLET 1 TAB PO DAILY HTN (Reported) Cholecalciferol (Vitamin D3) 1,000 UNIT TABLET 1,000 IU PO DAILY [facility] Docusate Sodium 100 MG CAPSULE 100 MG PO TID CONSTIPATION Ezetimibe (Zetia) 10 MG TABLET 1 TAB PO DAILY CHOL (Reported) Hydrochlorothiazide 25 MG TABLET 1 TAB PO DAILY BP (Reported) Insulin Admin. Supplies (Novopen Echo) 1 EACH INSULN.PEN 5 UNITS SC BID DM 11 (Reported) BREAKFAST AND LUNCH Insulin Glargine,Hum.rec.anlog (Lantus Solostar) 100 UNIT/ML (3 ML) INSULN.PEN 16 UNITS SC NIGHTLY DM 11 (Reported) Latanoprost (Xalatan) 0.005 % DROPS 1 DROP NIGHTLY GLAUCOMA (Reported) Losartan (Cozaar) 100 MG TABLET 1 TAB PO DAILY BP (Reported) Magnesium Hydroxide (Milk Of Magnesia) 400 MG/5 ML ORAL.SUSP 30 ML PO AT BEDTIME PRN CONSTIPATION Multivitamin (One Daily Multivitamin) 1 EACH TABLET 1 TAB PO DAILY [facility] Oxycodone HCl/Acetaminophen (Percocet 5-325 MG Tablet) 5 MG-325 MG TABLET 2 TAB PO Q4P PRN PAIN SCALE 4-6 (MODERATE) 1-2 TABS PO Q 4-6 HRS PRN PAIN Review of Systems Review of Systems Constitutional: Denies: diaphoresis, fever, malaise. EENTM: Denies: blurred vision, double vision, visual changes, eye pain. Cardiovascular: Denies: chest pain, edema, orthopena. Respiratory: Denies: cough, hemoptysis, orthopnea. GI: Denies: abdominal pain, bloating, constipation. Genitourinary: Denies: discharge, dysuria, frequency. Musculoskeletal: Denies: back pain, gout, joint pain. Skin: Denies: change in skin color, change in hair/nails, dryness. Past History Medical History Neurological: migraine, Hx of Meniere's Disease EENT: hearing loss Cardiovascular: hypertension, hyperlipidemia, systolic CHF Respiratory: asthma Gastrointestinal: NONE Hepatic: NONE Renal: NONE Musculoskeletal: chronic back pain, disk herniation, degen joint disease, osteoarthritis, sciatica, spinal stenosis Psychiatric: depression Endocrine: diabetes Blood Disorders: NONE Cancer(s): NONE COIL PLACER/Reproductive: NONE Surgical History Surgical History: appendectomy, arthroscopy (right and left shoulder x 8), hernia repair-inguinal (right inguinal;), laminectomy, s/p T & A s/p sinus surgery s/p ACDF/PCDF C5-T1 with Instr./ICBG 05/05/16 Family History Relations & Conditions If Any: MOTHER ( diabetes mellitus). . FATHER ( COPD). . BROTHER ( ASCVD). . Psychosocial History Who Do You Live With? spouse Smoking Status: Unknown If Ever Smoked Functional Ability ADLs Independent: dressing, eating, toileting, bathing. Ambulation: independent IADLs Independent: shopping, housework, finances, food prep, telephone, transportation , medication admin. Exam & Diagnostic Data Last 24 Hrs of Vital Signs/I&O Vital Signs Date Time Temp Pulse Resp B/P B/P Pulse O2 O2 Flow FiO2 Mean Ox Delivery Rate 09/28 1802 97.6 84 18 110/64 96 Nasal 2.0L Cannula Physical Exam General Appearance: well developed/nourished, no apparent distress Head: atraumatic, normal appearance Respiratory: normal breath sounds, chest non-tender Cardiovascular: regular rate/rhythm, edema Gastrointestinal: normal bowel sounds, soft, non-tender Last 24 Hrs of Labs/Oj: Laboratory Tests 09/28/16 1000: CBC w Diff NO MAN DIFF REQ, RBC 3.80 L, MCV 90.9, MCH 30.9, RDW 13.6, MPV 7.9, Gran % 81.2 H, Lymphocytes % 12.6 L, Monocytes % 5.2, Eosinophils % 0.7, Basophils % 0.3, Absolute Granulocytes 10.9 H, Absolute Lymphocytes 1.7, Absolute Monocytes 0.7 H, Absolute Eosinophils 0.1, Absolute Basophils 0, PUBS MCHC 34.0 Assessment/Plan Assessment/Plan Patient is 75-year-old male with past medical history significant for insulin- dependent diabetes mellitus, hypertension and hyperlipidemia,hearing loss, migraine, diabetes mellitus, osteoarthritis, depression, migraine headache,sever spinal stenosis has been admitted to [facility] under surgical service for spinal stenosis surgery s/p Lumbosacral inspection of fusion mass L5-S1 with revision laminectomies L4 L5 S1. We are consulted for management of diabetes mellitus and hypertension Plan: Hypertension: * Blood pressure is currently stable. * Restart antihypertensives including Coreg, losartan and hydrochlorothiazide in the morning. * Monitor vitals every 4 hours. History of insulin-dependent diabetes mellitus: * Patient has resulted on NovoLog sliding scale. * Sugar levels are currently stable, if appetite still remains low consider decreasing the dose of long-acting insulin Levemir to 8-10 units at bedtime. * Accu-Cheks with carbohydrate consistent diet Spinal stenosis surgery s/p Lumbosacral surgery (postop day 0) * Continue pain management as per surgery. Consult Acknowledgment - Thank you for your consult request. ROBERT PEARSON 09/29/16 0317: Assessment/Plan Consult Acknowledgment - Thank you for your consult request. Attending MD Review Statement Attending Statement Attending MD Statement: examined this patient, discuss w/resident/PA/STARTER MECHANIC, agreed w/resident/PA/STARTER MECHANIC, reviewed EMR data (avail), reviewed images, amended to note Attending Assessment/Plan: CC : medical consult for DM and HTN management PMHx: HTN, IDDM, HLD, osteoarthritis Patient underwent revision lumbar laminectomy decompression/fusion L4-S1 today. We were asked for medical comanagement for diabetes and hypertension. Patient's PCP in [facility], regularly follows up with him. Patient denies chest pain, shortness of breath, abdominal pain, nausea vomiting, constipation, fever or any weakness. Patient denies any dyspnea on exertion, orthopnea, extremity swellings. Vitals: unremarkable On exam: A O 3, no acute distress, no focal neurological deficit, cranial nerves intact, mucosa moist. CVS: S1-S2, RRR. RS: Bilateral air entry clear present abdomen: Obese, soft, NT, bowel sounds present. No pedal edema no obvious skin rashes or inflammations. Labs: CBC,reviewed unremarkable except low H and H. BMP and LFT reviewed from September 27 Unremarkable A and P #1 DM: Patient uses insulin at home : lantus 16 units and short acting (aspart) 5 units 2 times. continue his basal insulin 16 units, readjust if hypoglycemic, continue short-acting pre-meal sliding scale. Accu-Cheks pre-meal and at bedtime. #2 HTN: Patient underwent 2-D echo in apr 2016 which shows mild concentric LVH with ejection fraction of 65%. Continue Coreg, losartan, HCTZ (all his home medications) #3 continue amitriptyline # repeat CBc, BMP in Am for low H and H and r/o azotemia. Appreciate consult we will follow along.
--- NOTE | 2016-09-28 22:40 | PN- Orthopedic ---
Subjective Subjective: Postop check Pt is resting comfortably. Per RN, he had some difficulty falling asleep, so I deferred exam for now. Per reports, pain was well controlled. No nausea, but minimal appetite. Tolerating liquids. Still awaiting void. Objective Vital Signs and I&Os Vital Signs Date Time Temp Pulse Resp B/P B/P Pulse O2 O2 Flow FiO2 Mean Ox Delivery Rate 09/28 2126 Nasal 1.0L Cannula 09/28 1801 Nasal 2.0L Cannula 09/28 1801 97.6 84 18 110/64 96 Nasal 2.0L Cannula Intake & Output 09/28 1600 09/28 0800 09/28 0000 09/27 1600 09/27 0800 09/27 0000 Intake Total Output Total Balance Patient 170 lb Weight Physical Exam: Gen: PT is resting comfortably. Exam was deferred to allow pt to sleep. Assessment/Plan Assessment/Plan Pt is a 75 yo M with a hx of htn and diabetes who is now POD #0 s/p revision lumbar laminectomy decompression/fusion L4-S1. Plan: -Pain control percocet or morphine as needed. -Advance diet as tolerated. Continue IVF for now until tolerating po. -Home meds resumed, including b louis. Monitor fasting blood sugars. Decrease evening levemir dose if appetite remains poor (per medicine recommendations). -Pt may be OOB/ambulate with assistance as tolerated. -Alps for DVT ppx. -Ancef x 24 hours for ppx. -Colace TID to prevent constipation. -Plan for dressing change POD #2. Core Measures/Miscellaneous Venous Thromboembolism VTE Risk Factors: Age > 40 VTE Contraindications: No Contraindications No Pharm VTE Prophylaxis D/T: Surgical Contraindication VTE Diagnosis: No Beta Louis Is Beta Louis a Home Med? Yes If Yes, Was This Ordered Today? Yes Antibiotics Is Patient on Antibiotics? Yes If Yes: prophylaxis
[2016-09-28 22:45] VITALS: BP 140/68
[2016-09-29 06:06] VITALS: BP 108/60
--- NOTE | 2016-09-29 07:13 | PN- Medicine Consult ---
JAX JEFFERS 09/29/16 0712: Assessment/Plan Assessment/Plan Assessment: Patient is 75-year-old male with past medical history significant for insulin- dependent diabetes mellitus, hypertension and hyperlipidemia,hearing loss, migraine, diabetes mellitus, osteoarthritis, depression, migraine headache,sever spinal stenosis has been admitted to [facility] under surgical service for spinal stenosis surgery s/p Lumbosacral inspection of fusion mass L5-S1 with revision laminectomies L4 L5 S1. We are consulted for management of diabetes mellitus and hypertension Plan: Plan: Hypertension: * Blood pressure is is currently borderline(blood pressure is borderline 108/60 saturating more than 92% on 2 L) * Restart antihypertensives including Coreg, losartan and hydrochlorothiazide . * Hold antihypertensives for blood pressure less than 90/60 * Monitor vitals every 4 hours. History of insulin-dependent diabetes mellitus: * Patient's appetite still remains low. * Continue with the short-acting NovoLog sliding scale. * Continue with home dose of Levemir 16 units at bedtime. * Accu-Cheks with carbohydrate consistent diet Spinal stenosis surgery s/p Lumbosacral surgery (postop day 0) * Patient is reporting 7/10 pain, consider increasing the dose of IV morphine. * Continue Percocet * Continue other management as per surgery. Problem List: 1. Hypertension 2. Diabetes mellitus, insulin dependent (IDDM), controlled Subjective Subjective: Patient is seen and examined the morning, still reports 7/10 pain at the surgical site, not well controlled with low-dose IV morphine. Denies any chest discomfort or breathing or any palpitations. Appetite still remains low denies any nausea vomiting or any abdominal discomfort. Last 3 finger sugar sticks (170, 170, 170), blood pressure is borderline 108/60 saturating more than 92% on 2 L Review of Systems Constitutional: Denies: diaphoresis, fever, malaise. EENTM: Denies: blurred vision, double vision, visual changes. Cardiovascular: Denies: chest pain, edema, orthopena. Respiratory: Denies: cough, hemoptysis, orthopnea. Gastrointestinal: Denies: abdominal pain, bloating, constipation, diarrhea. Genitourinary: Denies: dysuria, frequency, hematuria. Musculoskeletal: Denies: gout, joint pain. Skin: Denies: cysts, change in skin color, change in hair/nails. Neurological/Psychological: Denies: anxiety, ataxia, confusion. Objective Last 24 Hrs of Vital Signs/I&O Vital Signs Date Time Temp Pulse Resp B/P B/P Pulse O2 O2 Flow FiO2 Mean Ox Delivery Rate 09/29 605 98.4 105 22 108/60 92 Nasal 2.0L Cannula 09/29 0000 Nasal 2.0L Cannula 09/28 2245 97.7 92 20 140/68 96 09/28 212 Nasal 1.0L Cannula 09/28 1801 Nasal 2.0L Cannula 09/28 1801 97.6 84 18 110/64 96 Nasal 2.0L Cannula Intake & Output 09/29 0800 09/29 0000 09/28 1600 Intake Total 880 840 Output Total 700 350 Balance 180 490 Intake, IV 640 240 Intake, Oral 240 600 Output, Urine 700 350 Patient 170 lb Weight Weight Reported by Patient Measurement Method Physical Exam General Appearance: well developed/nourished, mild distress Head: atraumatic, normal appearance Ears, Nose, Throat: normal pharynx, normal ENT inspection Neck: normal inspection, supple Cardiovascular: regular rate/rhythm, edema Respiratory: normal breath sounds, chest non-tender Abdomen: normal bowel sounds, soft, non-tender Extremities: normal inspection Neurologic/Psychiatric: no motor/sensory deficits, awake, alert Skin: intact, normal color Current Medications: Current Medications Sig/Milind Start time Last Medication Dose Route Stop Time Status Admin Acetaminophen 650 MG Q4P PRN 09/28 1630 AC PO Acetaminophen 1,000 MG .STK-MED ONE 09/29 955 DC IV 09/28 0957 Bisacodyl 10 MG DAILY NEEDED PRN 09/28 1630 AC DC Calcium 600 MG BID 09/28 2200 AC 09/28 PO 2126 Carvedilol 25 MG DAILY 09/29 1000 AC PO Cefazolin Sodium 1,000 MG IQ8 09/29 0000 AC 09/29 IV 09/29 1601 0001 Cefazolin Sodium 2,000 MG ONCE 09/28 0000 DC IV 09/28 2359 Cholecalciferol 1,000 IU DAILY 09/29 1000 AC PO Docusate Sodium 100 MG TID 09/28 2200 AC 09/28 PO 2126 Ezetimibe 10 MG DAILY 09/29 1000 AC PO Fentanyl Citrate 500 MCG .STK-MED ONE 09/29 955 DC IM 09/28 0957 Hydrochlorothiazide 25 MG DAILY 09/29 1000 AC PO Hydromorphone HCl 2 MG .STK-MED ONE 09/28 1612 DC IM 09/28 1613 Hydromorphone HCl 2 MG .STK-MED ONE 09/28 0956 DC IM 09/28 0957 Insulin Aspart 5 UNITS BID 09/28 2200 AC SC Insulin Aspart 0 TIDAC 09/28 1700 AC SC Insulin Detemir 16 UNITS QPM 09/28 2200 AC SC Insulin Detemir 8 UNITS ONCE ONE 09/28 2130 DC 09/28 SC 09/28 2131 2129 Lactated Ringer's 1,000 ML .[id number] 09/28 1645 AC 09/29 IV 0440 Latanoprost 1 GTT AT BEDTIME 09/28 2200 AC 09/28 OPH 2126 Losartan Potassium 100 MG DAILY 09/29 1000 AC PO Magnesium Hydroxide 30 ML AT BEDTIME PRN 09/28 1700 AC PO Morphine Sulfate 1 MG Q3P PRN 09/28 1630 AC 09/29 IV 0736 Multivitamins 1 TAB DAILY 09/29 1000 AC PO Ondansetron HCl 4 MG Q6P PRN 09/28 1630 AC IV Oxycodone/ 1 TAB Q4P PRN 09/28 1630 AC Acetaminophen PO Oxycodone/ 2 TAB Q4P PRN 09/28 1630 AC 09/28 Acetaminophen PO 2014 Remifentanil 2 MG .STK-MED ONE 09/28 1221 DC IV 09/28 1222 Remifentanil 1 MG .STK-MED ONE 09/28 1011 DC IV 09/28 1012 Trimethobenzamide HCl 200 MG Q6P PRN 09/28 1630 AC IM Results Last 24 Hrs Lab/Oj Results: Laboratory Tests 09/29/16 0620: CBC w Diff Pending, WBC Pending, RBC Pending, Hgb Pending, Hct Pending, MCV Pending, MCH Pending, RDW Pending, Plt Count Pending, MPV Pending, PUBS MCHC Pending 09/28/16 1000: CBC w Diff NO MAN DIFF REQ, RBC 3.80 L, MCV 90.9, MCH 30.9, RDW 13.6, MPV 7.9, Gran % 81.2 H, Lymphocytes % 12.6 L, Monocytes % 5.2, Eosinophils % 0.7, Basophils % 0.3, Absolute Granulocytes 10.9 H, Absolute Lymphocytes 1.7, Absolute Monocytes 0.7 H, Absolute Eosinophils 0.1, Absolute Basophils 0, PUBS MCHC 34.0 Microbiology 09/28 1120 URINE ROUT: Urine Culture - RES JESSICA RIVERA,PHILL 09/29/16 1448: Attending MD Review Statement Attending Sign Off Attending Cosign Statement: I have: examined this patient, reviewed al EMR data, personally reviewd images, discussd w/resident/PA/LOCOMOTIVE SUPERVISOR, discussed mgmt plan w/yobani, discussed mgmt plan w/pt, agreed w/resident/PA/LOCOMOTIVE SUPERVISOR, amended to note. Other Findings: Patient seen and examined. Sitting up his chair, complaining of low back pain. He reports ongoing pain despite current pain regimen. Reports poor appetite due to his pain with poor oral intake. Denies nausea. Denies vomiting. Denies abdominal discomfort. He is afebrile and hemodynamically stable. His blood pressure was borderline this morning but has improved. His blood glucose levels are ranging in the 180s to 200s. Recommendations: -Continue these antihypertensive regimen. - Blood glucose levels are acceptable despite is diminished oral intake. Continue him on his home regimen of insulin. Surgical service to optimize his pain control. -We will continue to follow. -
--- NOTE | 2016-09-29 08:28 | PN- Orthopedic ---
Subjective Subjective: POD #1 s/p lumbosacral inspection of fusion mass L5-S1. Revision laminectomies L4 L5 S1. Interdiscal cage placement L5-S1 left side with autologous iliac crest morselized bone implant. Harvesting of morselized bone right posterior iliac crest. Reconstruction of donor site with Master graft implant. Pedicle screw placement L5-S1 bilaterally. Discectomy foraminotomy L4 5 L5-S1. Neuro lysis right L5 nerve root. Lateral intertransverse process fusion L4 5 L5-S1. Patient resting comfortably in bed. States pain down legs is much improved from preoperatively. No N/V, F/C, CP/SOB. Voiding spontaneously. Objective Vital Signs and I&Os Vital Signs Date Time Temp Pulse Resp B/P B/P Pulse O2 O2 Flow FiO2 Mean Ox Delivery Rate 09/29 605 98.4 105 22 108/60 92 Nasal 2.0L Cannula 09/29 0000 Nasal 2.0L Cannula 09/28 2245 97.7 92 20 140/68 96 09/28 2127 Nasal 1.0L Cannula 09/28 180 Nasal 2.0L Cannula 09/28 1802 97.6 84 18 110/64 96 Nasal 2.0L Cannula Intake & Output 09/29 1600 09/29 0800 09/29 0000 09/28 1600 09/28 0800 09/28 0000 Intake Total 880 840 Output Total 700 350 Balance 180 490 Intake, IV 640 240 Intake, Oral 240 600 Output, Urine 700 350 Patient 170 lb Weight Weight Reported by Patient Measurement Method Physical Exam: Gen: AAOx3 in NAD Cor: S1+S2+ Lungs: CTA gema Abd: soft, NT, ND, +BS x4 Back: incisional dressing C/D/I. No surrounding erythema noted. Minimal tenderness to palpation Ext: motor exam grossly intact. Sensation intact. Palpable DP pulses gema. Current Medications: Current Medications Sig/Milind Start time Last Medication Dose Route Stop Time Status Admin Acetaminophen 650 MG Q4P PRN 09/28 1630 AC PO Acetaminophen 1,000 MG .STK-MED ONE 09/28 0956 DC IV 09/28 0957 Bisacodyl 10 MG DAILY NEEDED PRN 09/28 1630 AC [place] Calcium 600 MG BID 09/28 2200 AC 09/28 PO 2126 Carvedilol 25 MG DAILY 09/29 1000 AC PO Cefazolin Sodium 1,000 MG IQ8 09/29 0000 AC 09/29 IV 09/29 1601 0001 Cefazolin Sodium 2,000 MG ONCE 09/28 0000 DC IV 09/28 2359 Cholecalciferol 1,000 IU DAILY 09/29 1000 AC PO Docusate Sodium 100 MG TID 09/28 2200 AC 09/28 PO 2126 Ezetimibe 10 MG DAILY 09/29 1000 AC PO Fentanyl Citrate 500 MCG .STK-MED ONE 09/28 0956 DC IM 09/28 0957 Hydrochlorothiazide 25 MG DAILY 09/29 1000 AC PO Hydromorphone HCl 2 MG .STK-MED ONE 09/28 1612 DC IM 09/28 1613 Hydromorphone HCl 2 MG .STK-MED ONE 09/28 0956 DC IM 09/28 0957 Insulin Aspart 5 UNITS BID 09/28 2200 AC SC Insulin Aspart 0 TIDAC 09/28 1700 AC SC Insulin Detemir 16 UNITS QPM 09/28 2200 AC SC Insulin Detemir 8 UNITS ONCE ONE 09/28 2130 DC 09/28 SC 09/28 2131 2129 Lactated Ringer's 1,000 ML .[id number] 09/28 1645 AC 09/29 IV 0440 Latanoprost 1 GTT AT BEDTIME 09/28 2200 AC 09/28 OPH 2126 Losartan Potassium 100 MG DAILY 09/29 1000 AC PO Magnesium Hydroxide 30 ML AT BEDTIME PRN 09/28 1700 AC PO Morphine Sulfate 1 MG Q3P PRN 09/28 1630 AC 09/29 IV 0736 Multivitamins 1 TAB DAILY 09/29 1000 AC PO Ondansetron HCl 4 MG Q6P PRN 09/28 1630 AC IV Oxycodone/ 1 TAB Q4P PRN 09/28 1630 AC Acetaminophen PO Oxycodone/ 2 TAB Q4P PRN 09/28 1630 AC 09/28 Acetaminophen PO 2014 Remifentanil 2 MG .STK-MED ONE 09/28 1221 DC IV 09/28 1222 Remifentanil 1 MG .STK-MED ONE 09/28 1011 DC IV 09/28 1012 Trimethobenzamide HCl 200 MG Q6P PRN 09/28 1630 AC IM Results Last 48 Hours of Labs: Laboratory Tests 09/29 09/28 0620 UNK Hematology CBC w Diff Pending NO MAN DIFF REQ WBC (4.8 - 10.8 /CUMM) Pending 13.5 H RBC (4.70 - 6.10 /CUMM) Pending 3.80 L Hgb (14.0 - 18.0 G/DL) Pending 11.7 L Hct (42 - 52 %) Pending 34.6 L MCV (80.0 - 94.0 FL) Pending 90.9 MCH (27.0 - 31.0 PG) Pending 30.9 RDW (11.5 - 14.5 %) Pending 13.6 Plt Count (130 - 400 /CUMM) Pending 120 L MPV (7.4 - 10.4 FL) Pending 7.9 Gran % (42.2 - 75.2 %) 81.2 H Lymphocytes % (20.5 - 51.1 %) 12.6 L Monocytes % (1.7 - 9.3 %) 5.2 Eosinophils % (0 - 5 %) 0.7 Basophils % (0.0 - 2.0 %) 0.3 Absolute Granulocytes (1.4 - 6.5 /CUMM) 10.9 H Absolute Lymphocytes (1.2 - 3.4 /CUMM) 1.7 Absolute Monocytes (0.10 - 0.60 /CUMM) 0.7 H Absolute Eosinophils (0.0 - 0.7 /CUMM) 0.1 Absolute Basophils (0.0 - 0.2 /CUMM) 0 PUBS MCHC (33.0 - 37.0 G/DL) Pending 34.0 Assessment/Plan Assessment/Plan A: POD #1 s/p Lumbosacral inspection of fusion mass L5-S1. Revision laminectomies L4 L5 S1. Interdiscal cage placement L5-S1 left side with autologous iliac crest morselized bone implant. Harvesting of morselized bone right posterior iliac crest. Reconstruction of donor site with Master graft implant. Pedicle screw placement L5-S1 bilaterally. Discectomy foraminotomy L4 5 L5-S1. Neuro lysis right L5 nerve root. Lateral intertransverse process fusion L4 5 L5-S1; for spinal stenosis L4-S1. Plan: Regular diet. PT eval. Pain control to continue. Discharge planning. Core Measures/Miscellaneous Venous Thromboembolism VTE Risk Factors: Age > 40 VTE Contraindications: No Contraindications No Pharm VTE Prophylaxis D/T: Surgical Contraindication VTE Diagnosis: No Beta Louis Is Beta Louis a Home Med? Yes If Yes, Was This Ordered Today? Yes Antibiotics Is Patient on Antibiotics? Yes If Yes: prophylaxis
[2016-09-29 08:33] LABS: ABSOLUTE BASOPHIL COUNT 0 /CUMM (0.0-0.2); ABSOLUTE EOSINOPHIL COUNT 0 /CUMM (0.0-0.7); ABSOLUTE GRANULOCYTE CT 6.3 /CUMM (1.4-6.5); ABSOLUTE LYMPH COUNT 0.8 /CUMM (1.2-3.4); ABSOLUTE MONOCYTE COUNT 0.7 /CUMM (0.10-0.60); BASOPHIL % 0.2 % (0.0-2.0); EOSINOPHIL % 0.5 % (0-5); GRANULOCYTE % 80.2 % (42.2-75.2); HEMATOCRIT 31.1 % (42-52); MEAN CORPUSCULAR HGB 30.9 PG (27.0-31.0); MEAN CORPUSCULAR HGB CONC 33.6 G/DL (33.0-37.0); MEAN CORPUSCULAR VOLUME 91.7 FL (80.0-94.0); MEAN PLATELET VOLUME 8.8 FL (7.4-10.4); PLATELET COUNT 105 /CUMM (130-400); RBC DISTRIBUTION WIDTH 13.4 % (11.5-14.5); RED BLOOD CELL CT 3.39 /CUMM (4.70-6.10); WHITE BLOOD CELL COUNT 7.8 /CUMM (4.8-10.8)
[2016-09-29 15:07] VITALS: BP 124/60
--- NOTE | 2016-09-29 21:40 | NUR ---
ALERT AND ORIENTED X 3. ON ROOM AIR. DENIES SHORTNESS OF BREATH VITAL SIGNS STABLE. DENIES CHEST PAIN. + PULSES. DENIES NUMBNESS/TINGLING DSG TO BACK IS C/D/I. MEDICATION GIVEN FOR DISCOMFORT ASSIST X 1 W/ RW. PATIENT RESTING AT THIS TIME. WILL CONTINUE TO MONITOR
[2016-09-29 23:10] VITALS: BP 120/48
[2016-09-30 06:15] VITALS: BP 112/42
[2016-09-30 08:32] LABS: ABSOLUTE BASOPHIL COUNT 0 /CUMM (0.0-0.2); ABSOLUTE EOSINOPHIL COUNT 0.2 /CUMM (0.0-0.7); ABSOLUTE GRANULOCYTE CT 5.5 /CUMM (1.4-6.5); ABSOLUTE LYMPH COUNT 1.1 /CUMM (1.2-3.4); ABSOLUTE MONOCYTE COUNT 0.6 /CUMM (0.10-0.60); BASOPHIL % 0.4 % (0.0-2.0); EOSINOPHIL % 2.3 % (0-5); GRANULOCYTE % 73.3 % (42.2-75.2); MEAN CORPUSCULAR HGB 30.6 PG (27.0-31.0); MEAN CORPUSCULAR HGB CONC 33.3 G/DL (33.0-37.0); MEAN CORPUSCULAR VOLUME 92.1 FL (80.0-94.0); MEAN PLATELET VOLUME 8.8 FL (7.4-10.4); PLATELET COUNT 94 /CUMM (130-400); RBC DISTRIBUTION WIDTH 13.4 % (11.5-14.5); RED BLOOD CELL CT 2.93 /CUMM (4.70-6.10); WHITE BLOOD CELL COUNT 7.4 /CUMM (4.8-10.8)
[2016-09-30 08:45] VITALS: BP 120/50
--- NOTE | 2016-09-30 12:20 | PN- Orthopedic ---
Subjective Subjective: Has no major complaints this morning. He admits to some minor discomfort, that is controlled with oral pain meds. He ambulated well today. He is tolerating a regular diet, but appetite is somewhat poor. No nausea, but no bowel movement as of yet either. Objective Vital Signs and I&Os Vital Signs Date Time Temp Pulse Resp B/P B/P Pulse O2 O2 Flow FiO2 Mean Ox Delivery Rate 09/30 0845 65 120/50 09/30 0615 98.6 96 20 112/42 96 09/29 2310 98.6 95 20 120/48 94 Room Air 09/29 1507 98.4 86 20 124/60 96 Room Air Intake & Output 09/30 1600 09/30 0800 09/30 0000 09/29 1600 09/29 0800 09/29 0000 Intake Total 596 253 1993 840 Output Total 800 1250 350 Balance 280 -200 80 490 Intake, IV 40 840 240 Intake, Oral 240 600 490 600 Number 0 Bowel Movements Output, Urine 800 1250 350 Patient 170 lb Weight Weight Reported by Patient Measurement Method Physical Exam: Gen.: Patient is awake and alert, sitting in the chair eating lunch. No acute distress. Cardiac: Regular Pulmonary: Lungs are clear to auscultation bilaterally. There is good and 3 effort. Abdomen: Moderately distended, nontender. Normoactive bowel sounds. Extremities: The back incision is clean, dry, and intact with verenice in place. There is no significant surrounding erythema, ecchymosis, or drainage. Lower extremity sensation is intact bilaterally. No significant lower extremity edema or calf tenderness bilaterally. Strength of dorsiflexion and plantarflexion 4 out of 5, equal bilaterally. Assessment/Plan Assessment/Plan Patient is a 75-year-old male with a history of insulin dependent diabetes, hypertension who is now postoperative day #2 status post revision lumbar laminectomy with decompression and fusion L4 through S1. Patient is stable from a surgical standpoint. Plan: -Continue pain control with Percocet as needed. -Encourage ambulation. Alps for DVT prophylaxis when in bed. -We will give a Dulcolax oral tab to promote bowel function. Continue diabetic diet. -Prophylactic antibiotics are complete. -Plan for discharge back to the hotel today. Patient's prescriptions are available in the outpatient retail pharmacy. -This was discussed with Vida Correia PA-C and she agrees with the plan. Core Measures/Miscellaneous Venous Thromboembolism VTE Risk Factors: Age > 40 VTE Contraindications: No Contraindications No Pharm VTE Prophylaxis D/T: Surgical Contraindication VTE Diagnosis: No Beta Louis Is Beta Louis a Home Med? Yes If Yes, Was This Ordered Today? Yes Antibiotics Is Patient on Antibiotics? No
--- NOTE | 2016-09-30 12:20 | Surg Short-stay <48hrs Dis Sum ---
Visit Information Visit Dates Admission Date: 09/28/16 Discharge Date: 09/30/2016 Surgical Short Stay DC Summary Admission Diagnosis: Spinal stenosis of L4 through 5 and L5 through S1. Final Diagnosis: Same Procedure(s): Revision lumbar laminectomy with decompression and fusion on 09/28/[address] Jude Renee Summary/Significant Findings: Patient presented for elective revision lumbar laminectomy on 09/28/[address] Renee. He tolerated the procedure well and was transferred to the general medical floor postoperatively in stable condition. His diet was slowly advanced and he progressed well with ambulation. Medical consult was obtained for management of chronic hypertension and diabetes. His postoperative course was otherwise uncomplicated and he was cleared for discharge. Condition at Discharge: Stable stable Discharge Disposition: home or self care Discharge instructions provided to patient/family: Yes Post discharge follow-up plan: See attached instructions
--- NOTE | 2016-09-30 14:12 | PN- Att Addend ---
Attending Addendum Attending Brief Note Patient seen and examined, overall doing much better. Still has some pain in the back. Vital Signs Date Time Temp Pulse Resp B/P B/P Pulse O2 O2 Flow FiO2 Mean Ox Delivery Rate 09/30 0845 65 120/50 09/30 0615 98.6 96 20 112/42 96 09/29 2310 98.6 95 20 120/48 94 Room Air 09/29 1507 98.4 86 20 124/60 96 Room Air on exam; aox3, nad. cv; s1, s2, rrr resp; clear abd; soft, nt, bs+ ext; no edema. ms: + dressing on the back. Laboratory Tests 10/01 627 Chemistry Sodium (137 - 145 mmol/L) 138 Potassium (3.5 - 5.1 mmol/L) 3.4 L Chloride (98 - 107 mmol/L) 99 Carbon Dioxide (22 - 30 mmol/L) 33 H Anion Gap (5 - 16) 6 BUN (9 - 20 mg/dL) 10 Creatinine (0.7 - 1.2 mg/dL) 0.8 Estimated GFR (>60 ml/min) > 60 BUN/Creatinine Ratio (7 - 25 %) 12.5 Hematology CBC w Diff NO MAN DIFF REQ WBC (4.8 - 10.8 /CUMM) 7.4 RBC (4.70 - 6.10 /CUMM) 2.93 L Hgb (14.0 - 18.0 G/DL) 9.0 L Hct (42 - 52 %) 27.0 L MCV (80.0 - 94.0 FL) 92.1 MCH (27.0 - 31.0 PG) 30.6 RDW (11.5 - 14.5 %) 13.4 Plt Count (130 - 400 /CUMM) 94 L MPV (7.4 - 10.4 FL) 8.8 Gran % (42.2 - 75.2 %) 73.3 Lymphocytes % (20.5 - 51.1 %) 15.3 L Monocytes % (1.7 - 9.3 %) 8.7 Eosinophils % (0 - 5 %) 2.3 Basophils % (0.0 - 2.0 %) 0.4 Absolute Granulocytes (1.4 - 6.5 /CUMM) 5.5 Absolute Lymphocytes (1.2 - 3.4 /CUMM) 1.1 L Absolute Monocytes (0.10 - 0.60 /CUMM) 0.6 Absolute Eosinophils (0.0 - 0.7 /CUMM) 0.2 Absolute Basophils (0.0 - 0.2 /CUMM) 0 PUBS MCHC (33.0 - 37.0 G/DL) 33.3 Assessment and recommendations. Patient is 75-year-old male with past medical history significant for insulin- dependent diabetes mellitus, hypertension and hyperlipidemia,hearing loss, migraine, diabetes mellitus, osteoarthritis, depression, migraine headache,sever spinal stenosis has been admitted to [facility] under surgical service for spinal stenosis surgery s/p Lumbosacral inspection of fusion mass L5-S1 with revision laminectomies L4 L5 S1. Stable from medical standpoint. Blood pressure and blood sugars are stable. Pain is controlled. Patient is medically stable to be discharged today. Continue home regimen.
== END 2016-09-30 14:35 | DRG 460 ==
LOC: SDA 02:41 → ENRESERV 16:11 → ENTRNSPT 17:34 → 2NB 18:02 → CMPTRNSPT 18:21 → ENPENDDIS 09-30 12:30 → 2NB 09-30 14:35
PROVIDERS: Orthopaedic Surgery Orthopaedic Surgery of the Spine; Physician Assistant Surgical; ADMIT Orthopaedic Surgery Orthopaedic Surgery of the Spine
PROC: 0SG30A1 (ICD-10-PCS; principal; 2016-09-28)
PROC: 0SG0071 Fusion of Lumbar Vertebral Joint with Autologous Tissue Substitute, Posterior Approach, Posterior Column, Open Approach (ICD-10-PCS; 2016-09-28)
PROC: 0SB20ZZ Excision of Lumbar Vertebral Disc, Open Approach (ICD-10-PCS; 2016-09-28)
PROC: 0SB40ZZ Excision of Lumbosacral Disc, Open Approach (ICD-10-PCS; 2016-09-28)
PROC: 0QB20ZZ Excision of Right Pelvic Bone, Open Approach (ICD-10-PCS; 2016-09-28)
PROC: 4A11X4G Monitoring of Peripheral Nervous Electrical Activity, Intraoperative, External Approach (ICD-10-PCS; 2016-09-28)
DX: M48.07 Spinal stenosis, lumbosacral region (principal); E11.9 Type 2 diabetes mellitus without complications; I10 Essential (primary) hypertension; M48.06 Spinal stenosis, lumbar region; Z79.4 Long term (current) use of insulin; E78.5 Hyperlipidemia, unspecified; H91.90 Unspecified hearing loss, unspecified ear; M19.90 Unspecified osteoarthritis, unspecified site; F32.9 Major depressive disorder, single episode, unspecified
CPT/HCPCS: 2NBSP; 36415; 72100; 82436; 87086; 97116-GO; 97161-GP; 97530-GO; C9399; J0131; J0690; J1644; J2405; J3250; J3490; J7120

== ENCOUNTER 2017-07-19 02:18 | Inpatient (IN) | payer OTHER ==
[~2017-07-19] VITALS: Ht 157.5 cm; Wt 76.2 kg
[~2017-07-19 02:18] MED LIST changes: +TYLENOL325 M1 PO
--- NOTE | 2017-07-19 11:03 | Operative Report ---
Operative/Inv Procedure Report Surgery Date: 07/19/17 Name of Procedure: Inspection of fusion mass L5-S1 removal of pedicle screw hardware bilaterally for screws. Laminectomies laminotomy discectomy L4 5 L5-S1. Instrumented fusion instrumented fusion with autologous bone graft L4 5 S1 bilaterally. Neuro lysis left L4 nerve root. Use of fluoroscopy. Pre-Operative Diagnosis: Status post instrumented L5-S1 fusion with spinal stenosis and loose hardware. Post-Operative Diagnosis: Same Estimated Blood Loss: 50ml to 100ml Surgeon/Hotel Reservationist: Víctor RIVERA,Jude Macedo M.D. Anesthesia: general endotracheal tube Monitors: Neuro Operative/Procedure Note Note: After adequate general anesthesia was achieved the space was placed in the prone position with all bony prominences padded. The arms were placed in neutral. The back was sterilely prepped and draped. The previous incision was utilized and entered sharply. Dissection was carried slightly cephalad. The dissection was carried over the dorsal elements in the hardware was easily identified. The fusion was inspected and there is evidence of loose hardware signifying a nonunion. The L5 screws were significantly loose and easily removed. All hardware was removed bilaterally with the exception of the interdiscal cage which remained intact. There was no evidence of gross motion at L5-S1. Laminectomies were performed on the left side at L4 5 and L5-S1. There is severe compression of the left L4 nerve which was debrided and neuro lysis of the L4 nerve root was performed under loupe magnification with the micro- instruments freeing up the nerve which was markedly erythematous. During the decompression the spinous processes and lamina were saved for bone graft dissection for 5 was carried through the's spinous process which was removed as was the inferior aspect the lamina of L4 and the superior aspect the lamina of L5. A partial facetectomy was performed involving proximally 20% of the facet which was markedly enlarged and encroaching the canal at 45 on the left. There is severe degenerative arthritis of the facet joints. The bone was relatively soft. A decision was made not to instrument the cephalad level. The decompressed was carried into the foramen and a partial foraminotomy was performed of the medial half of the foramen along with discectomy. Prior to removal the hardware was checked with the neuro monitoring found to be normal. After removal of the 64 screws the screw holes were tapped and enlarged screws were placed with reasonable purchase in all 4 screws. Rods were contoured and tightened into position. The lateral intertransverse process region was decorticated the high-speed bur and bone graft was packed laterally from L4 to S1 bilaterally. The wound was copiously irrigated bone graft remained in position the laminectomy sites were covered with Gelfoam and a closure of the lumbodorsal fashion subcutaneous tissue was performed with absorbable suture after fluoroscopy showed appropriate position of the hardware. The skin was closed with verenice. After placement sterile dressings the patient was log rolled on a stretcher.
[2017-07-19] MEDS ORDERED: DULCOLAX10 M1 RC (11:41)
[2017-07-19] MEDS ORDERED: OS-CAL 500+D31 EAC1 PO (11:41)
[2017-07-19] MEDS ORDERED: MILK OF MA400 MG/52 PO (11:41)
[2017-07-19] MEDS ORDERED: PERCOCET 5-3251 EACH PO (11:42)
[2017-07-19 11:53] LABS: ABSOLUTE BASOPHIL COUNT 0 /CUMM (0.0-0.2); ABSOLUTE EOSINOPHIL COUNT 0 /CUMM (0.0-0.7); ABSOLUTE GRANULOCYTE CT 4.9 /CUMM (1.4-6.5); ABSOLUTE LYMPH COUNT 0.7 /CUMM (1.2-3.4); ABSOLUTE MONOCYTE COUNT 0.1 /CUMM (0.10-0.60); BASOPHIL % 0.3 % (0.0-2.0); EOSINOPHIL % 0.3 % (0-5); GRANULOCYTE % 84.4 % (42.2-75.2); MEAN CORPUSCULAR HGB 32.3 PG (27.0-31.0); MEAN CORPUSCULAR HGB CONC 33.8 G/DL (33.0-37.0); MEAN CORPUSCULAR VOLUME 95.3 FL (80.0-94.0); MEAN PLATELET VOLUME 7.9 FL (7.4-10.4); PLATELET COUNT 138 /CUMM (130-400); RBC DISTRIBUTION WIDTH 13.4 % (11.5-14.5); RED BLOOD CELL CT 3.78 /CUMM (4.70-6.10); WHITE BLOOD CELL COUNT 5.8 /CUMM (4.8-10.8)
--- NOTE | 2017-07-19 12:31 | RADIOLOGY REPORT ---
EXAMINATION: XR LUMBOSACRAL SPINE CLINICAL INFORMATION: 76-year-old male for removal of hardware. COMPARISON: None TECHNIQUE AND FINDINGS: C-arm fluoroscopy assistance is provided at the time of the procedure. 2 spot radiographs of the lumbosacral spine were obtained at the time of the procedure in the OR. Postsurgical changes of posterior spinal fusion are noted at L5-S1. There is suggestion of grade 1-2 anterolisthesis of L5 over S1 noted. Fluoroscopy time: 0.11 minutes. The full procedural detail will be dictated by the performing surgeon, Dr. Renee. IMPRESSION: C-arm fluoroscopic assistance provided at the time of the procedure. Full procedural detail will be dictated by Dr. Renee.
--- NOTE | 2017-07-19 14:32 | PN- Neurosurgical ---
Subjective Subjective: POST-OP CHECK Pt in bed, minimal pain. tolerating PO, no nausea. Denies paesthesias. Due to void. denies CP/SOB due to ambulate with physical therapy Objective Vital Signs and I&Os Intake & Output 07/19 1600 07/19 0800 07/19 0000 07/18 1600 07/18 0800 07/18 0000 Intake Total Output Total Balance Patient 168 lb 170 lb Weight Weight Reported by Patient Measurement Method Physical Exam: gen- NAD abd- soft, NT back- dressing clean and dry. ice pack- to op site. nontender. ext- 2+ DP pulse bilaterally. distal sensory and motor function intact. Assessment/Plan Assessment/Plan 76yo M SP L5-S1 hardware removal, laminectomy and discectomy L4-5, L5-S1, instrumented fusion L4-5 L5-S1 and neurolysis of L4 left nerve root POD0. stable pain management PT- WBAT DVT ppx- teds and ALPs reg diet reg home meds dressing change POD2 Due to void FU am labs Core Measures Venous Thromboembolism VTE Risk Factors Surgery No Mechanical VTE Prophylaxis d/t N/A MechProphylax Ordered No VTE Pharm Prophylaxis d/t Surgical Contraindication
--- NOTE | 2017-07-19 14:34 | Admission Core Measures ---
Acute Coronary Syndrome (CM) ACS Core Measures Acute Coronary Syndrome Diagnosis No Congestive Heart Failure (NEW) CHF Core Measures Congestive Heart Failure Diagnosis No Cerebrovascular Accident (NEW) CVA Core Measures CVA/TIA Diagnosis No Venous Thromboembolism VTE Core Avelina (View Protocol) VTE Risk Factors Surgery No Mechanical VTE Prophylaxis d/t N/A MechProphylax Ordered No VTE Pharm Prophylaxis d/t Surgical Contraindication Problem List As ranked by this Provider includes Assessment & Plan 1. Spinal stenosis of lumbar region at multiple levels HOME MEDS Home Med List Acetaminophen (Tylenol) 325 MG TABLET 650 MG PO Q4P PRN TEMP > 101.5 Bisacodyl (Dulcolax) 10 MG SUPP.RECT 1 SUP RC DAILY PRN CONSTIPATION Calcium Carbonate/Vitamin D3 (Os-Robert 500+D3 Caplet) 500 MG-200 TABLET 1 TAB PO BID BONE HEALTH Carvedilol 25 MG TABLET 1 TAB PO BID hypertension (Reported) Cholecalciferol (Vitamin D3) 1,000 UNIT TABLET 1,000 IU PO DAILY BONE HEALTH Docusate Sodium 100 MG CAPSULE 100 MG PO TID CONSTIPATION Ezetimibe (Zetia) 10 MG TABLET 1 TAB PO DAILY CHOL (Reported) Hydrochlorothiazide 25 MG TABLET 1 TAB PO DAILY BP (Reported) Insulin Admin. Supplies (Novopen Echo) 1 EACH INSULN.PEN 5 UNITS SC BID DM 11 (Reported) Insulin Glargine,Hum.rec.anlog (Lantus Solostar) 100 UNIT/ML (3 ML) INSULN.PEN 16 UNITS SC NIGHTLY DM 11 (Reported) Losartan (Cozaar) 100 MG TABLET 1 TAB PO DAILY BP (Reported) Magnesium Hydroxide (Milk Of Magnesia) 400 MG/5 ML ORAL.SUSP 5 ML PO Q8P PRN CONSTIPATION Multivitamin (One Daily Multivitamin) 1 EACH TABLET 1 TAB PO DAILY GENERAL HEALTH Oxycodone HCl/Acetaminophen (Percocet 5-325 MG Tablet) 5 MG-325 MG TABLET 1-2 TAB PO Q4-6 PRN PAIN
[2017-07-19 17:58] VITALS: BP 136/72
--- NOTE | 2017-07-19 18:36 | Cons- Medical ---
Car RIVERA,[facility] 07/19/17 1835: General Information and HPI Consulting Request Date of Consult: 07/19/17 Requested By: Jude Renee MD History of Present Illness: Mr. Suarez is 75-year-old gentleman from [facility] with past medical history significant for insulin-dependent bilateral lower extremity venous insufficiency , diabetes mellitus, hypertension and hyperlipidemia, HFPEF, hearing loss, multiple spinal surgery had L4-S1 laminectomy with instrumented L5-S1 fusion with iliac crest bone grafting September 2016, anterior and posterior cervical decompression fusion with laminectomies C5, C6, C7-T1 in April 2016 who was admitted to [facility] for progressively worsening low back pain with left anterior iliac graft site discomfort. Patient is status post L5-S1 hardware removal, laminectomy and discectomy L4-5, L5-S1, instrumented fusion L4-5 L5-S1 and neurolysis of L4 left nerve root POD#0. We were consulted given patient past medical history of hypertension hyperlipidemia and diabetes mellitus. Patient was seen and examined this afternoon, he is laying comfortably in bed, reported having pain under control. Patient denied any chest pain, palpitation or shortness of breath. Patient had some soup for lunch denied any abdominal pain, nausea or vomiting. He didn't have bowel movement since last Sunday. Denied any burning with urination or suprapubic pain. Patient's vital signs are stable. Blood sugar 169. Allergies/Medications Allergies: Coded Allergies: No Known Allergies (07/18/17) Current Medications: Current Medications Sig/Milind Start time Last Medication Dose Route Stop Time Status Admin Acetaminophen 650 MG Q4P PRN 07/19 1130 AC PO Acetaminophen 1,000 MG .STK-MED ONE 07/19 0642 DC IV 07/19 0643 Bisacodyl 10 MG DAILY NEEDED PRN 07/19 1130 AC HI Calcium 600 MG BID 07/19 2100 AC PO Carvedilol 25 MG BID 07/19 2100 AC PO Cefazolin Sodium 1,000 MG IQ8 07/19 1600 AC /03 IV 07/20 0801 1715 Cefazolin Sodium 2,000 MG ONCE 07/19 0000 NR IV 07/19 2359 Cholecalciferol 1,000 IU DAILY 07/20 0900 AC PO Docusate Sodium 100 MG TID 07/19 1400 AC 07/19 PO 1555 Ezetimibe 10 MG DAILY 05/04 0900 AC PO Fentanyl Citrate 250 MCG .STK-MED ONE 07/19 0641 DC IM 07/19 0642 Hydrochlorothiazide 25 MG DAILY 07/20 09 AC PO Insulin Aspart 0 TIDAC 07/19 1200 AC 07/19 SC 1715 Insulin Detemir 16 UNITS QPM 07/19 2100 AC SC Lactated Ringer's 1,000 ML Q10H 07/19 1145 AC 07/19 IV 1430 Losartan Potassium 100 MG DAILY 07/20 899 AC PO Magnesium Hydroxide 30 ML Q8P PRN 07/19 1145 AC PO Midazolam HCl 2 MG .STK-MED ONE 07/19 0642 DC IM 07/19 0643 Morphine Sulfate 1 MG Q3P PRN 07/19 1130 AC IV Multivitamins 1 TAB DAILY 07/20 899 AC Therapeutic PO Ondansetron HCl 4 MG Q6P PRN 07/19 1130 AC IV Oxycodone/ 1 TAB Q4P PRN 07/19 1130 AC Acetaminophen PO Oxycodone/ 2 TAB Q4P PRN 07/19 1130 AC 07/19 Acetaminophen PO 1556 Remifentanil 2 MG .STK-MED ONE 07/19 06 DC IV 07/19 0642 Trimethobenzamide HCl 200 MG Q6P PRN 07/19 1130 AC IM Review of Systems Review of Systems Constitutional: Reports: see HPI. Denies: chills, fever, malaise, weakness. EENTM: Denies: blurred vision, visual changes. Cardiovascular: Denies: chest pain, orthopena, palpitations, peripheral edema, syncope. Respiratory: Denies: cough, short of breath. GI: Reports: constipation. Denies: abdominal pain, nausea, vomiting. Genitourinary: Denies: dysuria, frequency, hematuria, nocturia. Skin: Denies: rash. Neurological/Psychological: Denies: headache, numbness. 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 L5-S1 with ICBG 09/2016 Family History Relations & Conditions If Any: MOTHER ( diabetes mellitus). . FATHER ( COPD). . BROTHER ( ASCVD). . Psychosocial History Where Do You Live? Home Who Do You Live With? spouse Services at Home: None Primary Language: [place] Islander Smoking Status: Former Smoker Functional Ability ADLs Independent: dressing, eating, toileting, bathing. Ambulation: independent IADLs Independent: shopping, housework, finances, food prep, telephone, transportation , medication admin. Exam & Diagnostic Data Last 24 Hrs of Vital Signs/I&O Vital Signs Date Time Temp Pulse Resp B/P B/P Pulse O2 O2 Flow FiO2 Mean Ox Delivery Rate 07/19 1758 98.4 82 20 136/72 94 07/19 1430 Room Air Room Air Intake & Output 07/19 1600 07/19 0800 07/19 0000 Intake Total Output Total Balance Patient 76.204 kg Weight Weight Reported by Patient Measurement Method Physical Exam General Appearance: well developed/nourished, no apparent distress, alert, awake Head: atraumatic, normal appearance Ears, Nose, Throat: normal pharynx, normal ENT inspection Neck: normal inspection, supple, full range of motion Respiratory: normal breath sounds, chest non-tender, no respiratory distress Cardiovascular: regular rate/rhythm Gastrointestinal: normal bowel sounds, soft, non-tender Back: normal inspection, clean dressing at surgical site Extremities: normal inspection, normal capillary refill, normal range of motion, no edema, patient is wearning compression stockings Neurologic/Psych: no motor/sensory deficits, awake, alert, oriented x 3 Last 24 Hrs of Labs/Oj: Laboratory Tests 07/20/17 0607: CBC w Diff NO MAN DIFF REQ, RBC 3.46 L, MCV 95.2 H, MCH 32.1 H, MCHC 33.8, RDW 13.1, MPV 8.5, Gran % 77.4 H, Lymphocytes % 13.1 L, Monocytes % 8.4, Eosinophils % 0.8, Basophils % 0.3, Absolute Granulocytes 6.1, Absolute Lymphocytes 1.0 L, Absolute Monocytes 0.7 H, Absolute Eosinophils 0.1, Absolute Basophils 0 07/19/17 1135: CBC w Diff NO MAN DIFF REQ, RBC 3.78 L, MCV 95.3 H, MCH 32.3 H, MCHC 33.8, RDW 13.4, MPV 7.9, Gran % 84.4 H, Lymphocytes % 12.8 L, Monocytes % 2.2, Eosinophils % 0.3, Basophils % 0.3, Absolute Granulocytes 4.9, Absolute Lymphocytes 0.7 L, Absolute Monocytes 0.1, Absolute Eosinophils 0, Absolute Basophils 0 Assessment/Plan Assessment/Plan Mr. Suarez is 75-year-old gentleman from [facility] with past medical history significant for insulin-dependent bilateral lower extremity venous insufficiency , diabetes mellitus, hypertension and hyperlipidemia, HFPEF, hearing loss, multiple spinal surgery had L4-S1 laminectomy with instrumented L5-S1 fusion with iliac crest bone grafting September 2016, anterior and posterior cervical decompression fusion with laminectomies C5, C6, C7-T1 in April 2016 who was admitted to [facility] for progressively worsening low back pain with left anterior iliac graft site discomfort. Patient is status post L5-S1 hardware removal, laminectomy and discectomy L4-5, L5-S1, instrumented fusion L4-5 L5-S1 and neurolysis of L4 left nerve root POD#0. Recommendation Vitals every shift Accu check and continue NovoLog sliding scale Continue home medication losartan 100 mg daily and carvedilol 25 mg twice a day and hydrochlorothiazide 25 mg daily Monitor blood pressure closely Patient regimen per surgical team Avoid using narcotics or benzodiazepine for post op delirium Incentive spirometry Alps at all time Consult Acknowledgment - Thank you for your consult request. Christiano Mixon MD 07/19/17 4281: General Information and HPI Allergies/Medications Home Med List: Acetaminophen (Tylenol) 325 MG TABLET 650 MG PO Q4P PRN TEMP > 101.5 Bisacodyl (Dulcolax) 10 MG SUPP.RECT 1 SUP RC DAILY PRN CONSTIPATION Calcium Carbonate/Vitamin D3 (Os-Robert 500+D3 Caplet) 500 MG-200 TABLET 1 TAB PO BID BONE HEALTH Carvedilol 25 MG TABLET 1 TAB PO BID hypertension (Reported) Cholecalciferol (Vitamin D3) 1,000 UNIT TABLET 1,000 IU PO DAILY BONE HEALTH Docusate Sodium 100 MG CAPSULE 100 MG PO TID CONSTIPATION Ezetimibe (Zetia) 10 MG TABLET 1 TAB PO DAILY CHOL (Reported) Gabapentin 300 MG CAPSULE 300 MG PO Q8 SHINGLES NEUROPATHY Hydrochlorothiazide 25 MG TABLET 1 TAB PO DAILY BP (Reported) Insulin Admin. Supplies (Novopen Echo) 1 EACH INSULN.PEN 5 UNITS SC BID DM 11 (Reported) BREAKFAST AND LUNCH Insulin Glargine,Hum.rec.anlog (Lantus Solostar) 100 UNIT/ML (3 ML) INSULN.PEN 16 UNITS SC NIGHTLY DM 11 (Reported) Losartan (Cozaar) 100 MG TABLET 1 TAB PO DAILY BP (Reported) Magnesium Hydroxide (Milk Of Magnesia) 400 MG/5 ML ORAL.SUSP 5 ML PO Q8P PRN CONSTIPATION Multivitamin (One Daily Multivitamin) 1 EACH TABLET 1 TAB PO DAILY GENERAL HEALTH Oxycodone HCl/Acetaminophen (Percocet 5-325 MG Tablet) 5 MG-325 MG TABLET 1-2 TAB PO Q4-6 PRN PAIN Tamsulosin HCl (Flomax) 0.4 MG CAP.ER.24H 0.4 MG PO DAILY BPH Valacyclovir Hydrochloride (Valtrex) 500 MG TABLET 1,000 MG PO TID SHINGLES Assessment/Plan Consult Acknowledgment - Thank you for your consult request. Attending MD Review Statement Attending Statement Attending MD Statement: examined this patient, discuss w/resident/PA/ASSEMBLER GOLD FRAME, agreed w/resident/PA/ASSEMBLER GOLD FRAME, reviewed EMR data (avail), discussed with case mgmt, amended to note Attending Assessment/Plan: The patient is a 75 yo male with h/o DM2 on insulin, HL, HTN, and multiple spinal surgeries as above who presents pot operative repeat surgery (L5-S1 hardware removal and discectomy L4-5, L5-S1 with instrumented fusion of L4-5 and L5-S1). He was seen pre-operatively by his Medical Insurance Verifier in [facility] and ECHO was normal except mild diastolic dysfunction. He was stable post operatively and w/o c/o other than usual post operative discomfort. Physical Exam: VS: T 98.4, P 82, R 20, BP 136/72, PO 94% RA HEENT: laura- sl dry mucosa Neck: supple Chest: decreased BS at bases, clear Cor: RRR nl S1, S2 w/o murm Abd: BS+, soft, NT Ext: no edema Neuro: non-focal Labs/Tests- as above Impression/Plan: #Back Pain - s/p lumbar surgical procedure as above per Neurosurgery. Plan: Plan of care as per surgery. #Essential HTN- BP stable. Plan: Continue losartan/Carvedilol/HCTZ (if po intake good). #DM2- on insulin. Plan: Agree with sliding scale as above.
[2017-07-19 22:22] VITALS: BP 130/72
[2017-07-20 06:53] VITALS: BP 130/54
[2017-07-20 08:05] LABS: ABSOLUTE BASOPHIL COUNT 0 /CUMM (0.0-0.2); ABSOLUTE EOSINOPHIL COUNT 0.1 /CUMM (0.0-0.7); ABSOLUTE GRANULOCYTE CT 6.1 /CUMM (1.4-6.5); ABSOLUTE MONOCYTE COUNT 0.7 /CUMM (0.10-0.60); BASOPHIL % 0.3 % (0.0-2.0); EOSINOPHIL % 0.8 % (0-5); GRANULOCYTE % 77.4 % (42.2-75.2); MEAN CORPUSCULAR HGB 32.1 PG (27.0-31.0); MEAN CORPUSCULAR HGB CONC 33.8 G/DL (33.0-37.0); MEAN CORPUSCULAR VOLUME 95.2 FL (80.0-94.0); MEAN PLATELET VOLUME 8.5 FL (7.4-10.4); PLATELET COUNT 126 /CUMM (130-400); RBC DISTRIBUTION WIDTH 13.1 % (11.5-14.5); RED BLOOD CELL CT 3.46 /CUMM (4.70-6.10); WHITE BLOOD CELL COUNT 7.9 /CUMM (4.8-10.8)
--- NOTE | 2017-07-20 08:29 | PN- Medicine Consult ---
See Addendum Assessment/PlanMedical Consult Assessment/Plan Assessment: Mr. Suarez is 75-year-old gentleman from [facility] with past medical history significant for insulin-dependent bilateral lower extremity venous insufficiency , diabetes mellitus, hypertension and hyperlipidemia, HFPEF, hearing loss, multiple spinal surgery had L4-S1 laminectomy with instrumented L5-S1 fusion with iliac crest bone grafting September 2016, anterior and posterior cervical decompression fusion with laminectomies C5, C6, C7-T1 in April 2016 who was admitted to [facility] for progressively worsening low back pain with left anterior iliac graft site discomfort. Patient is status post L5-S1 hardware removal, laminectomy and discectomy L4-5, L5-S1, instrumented fusion L4-5 L5-S1 and neurolysis of L4 left nerve root POD#0. Recommendation -BP is controlled, continue home medication losartan 100 mg daily and carvedilol 25 mg twice a day and hydrochlorothiazide 25 mg daily -Accu check and continue NovoLog sliding scale -Obtain BEP please -Consider DC IVF when oral intake is good -Follow up CBC in AM for HB and platelet -Flexeril for muscle spasm -Avoid using narcotics or benzodiazepine for post op delirium -Incentive spirometry -Alps at all time Plan: As above Subjective Subjective: Patient was seen and examined this morning. He is in pain from right thigh muscle spasm. Vitals reviewed, controlled. BS is controlled. No overnight events. No BM yet. No abdominal pain, N/V. Review of Systems Constitutional: Reports: see HPI. Objective Last 24 Hrs of Vital Signs/I&O Vital Signs Date Time Temp Pulse Resp B/P B/P Pulse O2 O2 Flow FiO2 Mean Ox Delivery Rate 07/20 0833 81 130/54 / 0832 81 130/54 / 0653 98.0 81 20 130/54 93 /03 2222 97.6 90 20 130/72 92 /03 2043 84 140/62 05/03 1758 98.4 82 20 136/72 94 05/03 1430 Room Air Room Air Intake & Output 07/20 1600 07/20 0800 07/20 0000 Intake Total 1450 Output Total 500 Balance 950 Intake, IV 930 Intake, Oral 520 Number 0 Bowel Movements Output, Urine 500 Physical Exam General Appearance: well developed/nourished, alert, awake, mild distress Head: atraumatic Ears, Nose, Throat: normal pharynx, normal ENT inspection Neck: normal inspection, supple, full range of motion Cardiovascular: regular rate/rhythm Respiratory: normal breath sounds, chest non-tender, no respiratory distress Abdomen: normal bowel sounds, soft, non-tender Back: clean surgical wound dressing. Extremities: normal inspection, normal capillary refill, normal range of motion, no edema Current Medications: Current Medications Sig/Milind Start time Last Medication Dose Route Stop Time Status Admin Acetaminophen 1,000 MG .STK-MED ONE 07/19 1216 DC IV 07/19 1217 Acetaminophen 650 MG Q4P PRN 07/19 1130 AC PO Bisacodyl 10 MG DAILY NEEDED PRN 07/19 1130 AC [place] Calcium 600 MG BID 07/19 2100 AC 07/20 PO 0833 Carvedilol 25 MG BID 07/19 2100 AC 07/20 PO 0833 Cefazolin Sodium 1,000 MG IQ8 07/19 1600 DC 07/20 IV 07/20 0801 0744 Cefazolin Sodium 2,000 MG ONCE 07/19 0000 DC IV 07/19 2359 Cholecalciferol 1,000 IU DAILY 07/20 0900 AC 07/20 PO 0832 Cyclobenzaprine HCl 5 MG 4 TIMES/DAY PRN 07/20 0845 AC PO Docusate Sodium 100 MG TID 07/19 1400 AC 07/20 PO 0833 Ezetimibe 10 MG DAILY 07/20 0900 AC 07/20 PO 0832 Hydrochlorothiazide 25 MG DAILY 07/20 0900 AC 07/20 PO 0832 Hydromorphone HCl 2 MG .STK-MED ONE 07/19 1213 DC IM 07/19 1214 Hydromorphone HCl 2 MG .STK-MED ONE 07/19 1130 DC IM 07/19 1131 Insulin Aspart 0 TIDAC 07/19 1200 AC 07/19 SC 1715 Insulin Detemir 16 UNITS QPM 07/19 2100 AC 07/19 SC 2043 Lactated Ringer's 1,000 ML Q10H 07/19 1145 AC 07/20 IV 0743 Losartan Potassium 100 MG DAILY 07/20 0900 AC 07/20 PO 0832 Magnesium Hydroxide 30 ML Q8P PRN 07/19 1145 AC PO Morphine Sulfate 1 MG Q3P PRN 07/19 1130 AC 07/20 IV 0741 Multivitamins 1 TAB DAILY 07/20 0900 AC 07/20 Therapeutic PO 0832 Ondansetron HCl 4 MG Q6P PRN 07/19 1130 AC IV Oxycodone/ 1 TAB Q4P PRN 07/19 113 AC Acetaminophen PO Oxycodone/ 2 TAB Q4P PRN 07/19 1130 AC 07/20 Acetaminophen PO 0017 Trimethobenzamide HCl 200 MG Q6P PRN 07/19 113 AC IM Results Last 24 Hrs Lab/Oj Results: Laboratory Tests 07/20/17 0607: CBC w Diff NO MAN DIFF REQ, RBC 3.46 L, MCV 95.2 H, MCH 32.1 H, MCHC 33.8, RDW 13.1, MPV 8.5, Gran % 77.4 H, Lymphocytes % 13.1 L, Monocytes % 8.4, Eosinophils % 0.8, Basophils % 0.3, Absolute Granulocytes 6.1, Absolute Lymphocytes 1.0 L, Absolute Monocytes 0.7 H, Absolute Eosinophils 0.1, Absolute Basophils 0 07/19/17 1135: CBC w Diff NO MAN DIFF REQ, RBC 3.78 L, MCV 95.3 H, MCH 32.3 H, MCHC 33.8, RDW 13.4, MPV 7.9, Gran % 84.4 H, Lymphocytes % 12.8 L, Monocytes % 2.2, Eosinophils % 0.3, Basophils % 0.3, Absolute Granulocytes 4.9, Absolute Lymphocytes 0.7 L, Absolute Monocytes 0.1, Absolute Eosinophils 0, Absolute Basophils 0
[2017-07-20 15:07] VITALS: BP 160/72
[2017-07-20] MEDS ORDERED: GABAPENTIN300 M2 PO (17:15)
[2017-07-20] MEDS ORDERED: FLOMAX0.4 M1 PO (17:15)
[2017-07-20] MEDS ORDERED: VALTREX500 M1 PO (17:15)
--- NOTE | 2017-07-20 17:23 | PN- Orthopedic ---
Subjective Subjective: Patient c/o new onset right anterior thigh "burning Pain." + hx of shingles last year. No weakness. Preop pain less in left leg. + postop incisional pain. + flatus. + difficulty voiding. Jones replaced and pain eased. No fever/chills. No N/V. Priscilla. po and ambulated with Dr. Renee. Review of Systems: Remarkable for the above complaints. Objective Vital Signs and I&Os Vital Signs Date Time Temp Pulse Resp B/P B/P Pulse O2 O2 Flow FiO2 Mean Ox Delivery Rate 07/20 1507 98.2 76 20 160/72 93 Room Air 07/20 0833 81 130/54 / 0832 81 130/54 / 0653 98.0 81 20 130/54 93 / 2222 97.6 90 20 130/72 92 / 2043 84 140/62 / 1758 98.4 82 20 136/72 94 Intake & Output 07/20 1600 07/20 0800 / 0000 07/19 1600 07/19 0800 07/19 0000 Intake Total 1560 1450 Output Total 325 500 Balance 1235 950 Intake, IV 840 930 Intake, Oral 720 520 Number 0 Bowel Movements Output, Urine 325 500 Patient 168 lb Weight Weight Reported by Patient Measurement Method Physical Exam General Appearance: well developed/nourished, alert, awake, mild distress Head: atraumatic Respiratory: normal breath sounds, no respiratory distress Cardiovascular: regular rate/rhythm Abdomen: non-tender, + globoid. Back: Incision C/D/I. Dressings changed. Extremities: red patchy and dermatomal rash on right anterior thigh. , + unchanged +4/5 left ant. tib and EHL strength., - Homans, Neurovascularly intact with no new or worsening gross motor or sensory loss in gema. LE's. Neurologic/Psychiatric: awake, alert, oriented x 3 Skin: intact, rash, see extremity description Assessment/Plan Assessment/Plan Assessment: 1. S/p Rev. PLDF L4-S1 with Instr. L5-S1 with local bone 2. Shingles 3. Urinary Retention Plan: Start Valtrex, Neurontin, and Flomax Continue Oxycodone and Morphine prn severe pain. Ice prn pain. Ambulate with PT and nursing. Bowel regimen. Will F/U in am. Problem List: 1. Hypertension 2. Diabetes mellitus, insulin dependent (IDDM), controlled 3. Spinal stenosis of lumbar region at multiple levels 4. Urinary retention 5. Shingles Core Measures Venous Thromboembolism VTE Risk Factors Surgery No Mechanical VTE Prophylaxis d/t N/A MechProphylax Ordered No VTE Pharm Prophylaxis d/t Surgical Contraindication Attending MD Review Statement Attending Statement Attending MD Statement: examined this patient, discuss w/resident/PA/ELECTRIC MOTOR ANALYST, agreed w/resident/PA/ELECTRIC MOTOR ANALYST
[2017-07-21 05:45] VITALS: BP 118/64
--- NOTE | 2017-07-21 09:35 | PN- Orthopedic ---
Subjective Subjective: pt seen by attending, refer to Dr. Renee's hadwritten note in chart pt feeling well, in chair. Objective Vital Signs and I&Os Vital Signs Date Time Temp Pulse Resp B/P B/P Pulse O2 O2 Flow FiO2 Mean Ox Delivery Rate 07/21 0840 78 122/78 07/21 0545 98.2 76 22 118/64 93 Room Air 07/20 2056 92 160/72 07/20 1842 76 160/72 07/20 1507 98.2 76 20 160/72 93 Room Air Intake & Output 07/21 1600 07/21 0800 07/21 0000 07/20 1600 07/20 0800 07/20 0000 Intake Total 1461 875 8245 1450 Output Total 900 1750 325 500 Balance 380 -970 1235 950 Intake, IV 800 300 840 930 Intake, Oral 480 480 720 520 Number 0 Bowel Movements Output, Urine 900 1750 325 500 Physical Exam: pt seen by attending, refer to Dr. Renee's hadwritten note in chart gen- nad incision- dressing cdi- changed. ttp at incision, no erythema or drainage. Assessment/Plan Assessment/Plan A- POD2 sp lumbar procedure, with herpes zoster on meds, with gonzalez in place due to retention, otherwise stable. P- continue prn pain meds oob, ambulate cont flomax, dc gonzalez at [place] tonight cont valtrex, neurontin d/w attending dc planning pt seen by attending, refer to Dr. Renee's hadwritten note in chart Core Measures Venous Thromboembolism VTE Risk Factors Surgery No Mechanical VTE Prophylaxis d/t N/A MechProphylax Ordered No VTE Pharm Prophylaxis d/t Surgical Contraindication
--- NOTE | 2017-07-21 09:39 | PN- Medicine Consult ---
Assessment/PlanMedical Consult Assessment/Plan Assessment: Impression 76 year old man * s/p L5-S1 hardware removal, laminectomy/discectomy L4-5, L5-S1, fusion L4-5, L5-S1 and neurolysis of L4 left nerve root * HTN * DM - insulin dependent Plan: Plan -electrolytes have been adequately repleted -continue finger sticks and novolog sliding scale -encouraged incentive spirometry -continue losartan, coreg, hctz -pain control -on valtrex for possible shingles - no rash observed on his lower extremity - patient is requesting and I agree to stop Valtrex, the triamcinolone cream can be continued DVT prophylaxis at all times Subjective Subjective: pt seen and examined temp 98.2 hr 78 bp 122/78 93% room air oximetry Objective Last 24 Hrs of Vital Signs/I&O Vital Signs Date Time Temp Pulse Resp B/P B/P Pulse O2 O2 Flow FiO2 Mean Ox Delivery Rate 07/21 0840 78 122/78 07/21 0545 98.2 76 22 118/64 93 Room Air 07/20 2056 92 160/72 07/20 1842 76 160/72 05 1507 98.2 76 20 160/72 93 Room Air Intake & Output 07/21 1600 07/21 0800 05 0000 Intake Total 1280 780 Output Total 900 1750 Balance 380 -970 Intake, IV 800 300 Intake, Oral 480 480 Output, Urine 900 1750 Physical Exam Other Physical Findings: gen awake and alert head/neck room air, saturating well cvs s1, s2 lungs clear bilaterally abd sobt, bs+ ext without edema Current Medications: Current Medications Sig/Milind Start time Last Medication Dose Route Stop Time Status Admin Acetaminophen 650 MG Q4P PRN 07/19 1130 AC PO Bisacodyl 10 MG DAILY NEEDED PRN 07/19 1130 AC [place] Calcium 600 MG BID 07/19 2100 AC 07/21 PO 0840 Carvedilol 25 MG BID 07/19 2100 AC 07/21 PO 0840 Cholecalciferol 1,000 IU DAILY 07/20 0900 AC 07/21 PO 0840 Cyclobenzaprine HCl 5 MG 4 TIMES/DAY PRN 07/20 0845 AC 07/20 PO 0920 Docusate Sodium 100 MG TID 07/19 1400 AC 07/21 PO 0840 Ezetimibe 10 MG DAILY 07/20 0900 AC 07/21 PO 0840 Gabapentin 300 MG Q8 07/20 1612 AC 07/21 PO 0447 Hydrochlorothiazide 25 MG DAILY 07/20 0900 AC 07/21 PO 0841 Insulin Aspart 0 TIDAC 07/19 1200 AC 07/21 SC 0841 Insulin Detemir 16 UNITS QPM 07/19 2100 07/20 SC 2056 Lactated Ringer's 1,000 ML Q10H 07/19 1145 DC 07/21 IV 0119 Losartan Potassium 100 MG DAILY 07/20 09 AC 07/21 PO 0840 Magnesium Hydroxide 30 ML .STK-MED ONE 07/21 2051 DC PO 07/20 205 Magnesium Hydroxide 30 ML Q8P PRN 07/19 1145 AC 07/21 PO 0840 Magnesium Oxide 400 MG BID 07/20 1030 AC 07/21 PO 0840 Magnesium Sulfate 1 GM Q2H 07/20 1030 DC 07/20 Dextrose/Water 100 ML IV 07/20 1429 1222 Morphine Sulfate 1 MG Q3P PRN 07/21 0715 AC IV Morphine Sulfate 1 MG Q3P PRN 07/19 1130 DC 07/21 IV 0221 Multivitamins 1 TAB DAILY 07/20 0900 AC 07/21 Therapeutic PO 0840 Ondansetron HCl 4 MG Q6P PRN 07/19 1130 AC IV Oxycodone/ 1 TAB Q4P PRN 07/19 1130 AC Acetaminophen PO Oxycodone/ 2 TAB Q4P PRN 07/19 1130 AC 07/21 Acetaminophen PO 0446 Patient Medication 1 ED ONE ONE 07/20 1730 DC Teaching ED 07/20 1731 Potassium Chloride 40 MEQ ONCE ONE 07/20 1030 NC 07/20 PO 07/20 1031 1031 Potassium Phosphate 15 mMol ONE ONE 07/20 1900 DC 07/20 Sodium Chloride 250 ML IV 07/20 2304 2130 Tamsulosin HCl 0.4 MG DAILY 07/20 1614 AC 07/21 PO 0840 Triamcinolone 1 JANNET BID 07/20 2100 AC 07/21 Acetonide TOP 0841 Trimethobenzamide HCl 200 MG Q6P PRN 07/19 1130 AC IM Valacyclovir HCl 1,000 MG TID 07/20 1612 AC 07/21 PO 07/30 1700 0840 Results Last 24 Hrs Lab/Oj Results: Laboratory Tests 07/21/17 0600: Anion Gap 6, Estimated GFR > 60, BUN/Creatinine Ratio 17.1, Phosphorus 3.3, Magnesium 1.9 07/21/17 0600: Sodium Cancelled, Potassium Cancelled, Chloride Cancelled, Carbon Dioxide Cancelled, Anion Gap Cancelled, BUN Cancelled, Creatinine Cancelled, BUN/ Creatinine Ratio Cancelled, Magnesium Cancelled 07/20/17 1740: Magnesium 1.8 Microbiology 07/20 193 URINE ROUT: Urine Culture - RECD
[2017-07-21 13:51] VITALS: BP 97/48
[2017-07-21 14:38] VITALS: BP 104/56
[2017-07-21 22:13] VITALS: BP 112/58
[2017-07-22 07:02] VITALS: BP 125/67
[2017-07-22 08:42] VITALS: BP 125/67
--- NOTE | 2017-07-22 09:24 | Surg Short-stay <48hrs Dis Sum ---
Visit Information Visit Dates Admission Date: 07/19/17 Discharge Date: 07/22/17 Surgical Short Stay DC Summary Admission Diagnosis: Status post instrumented L5-S1 fusion with spinal stenosis and loose hardware. Final Diagnosis: same as above, s/p Surgery Date: 07/19/17 Name of Procedure: Inspection of fusion mass L5-S1 removal of pedicle screw hardware bilaterally for screws. Laminectomies laminotomy discectomy L4 5 L5-S1. Instrumented fusion instrumented fusion with autologous bone graft L4 5 S1 bilaterally. Neuro lysis left L4 nerve root. Use of fluoroscopy. Procedure(s): Surgery Date: 07/19/17 Name of Procedure: Inspection of fusion mass L5-S1 removal of pedicle screw hardware bilaterally for screws. Laminectomies laminotomy discectomy L4 5 L5-S1. Instrumented fusion instrumented fusion with autologous bone graft L4 5 S1 bilaterally. Neuro lysis left L4 nerve root. Use of fluoroscopy. Summary/Significant Findings: Electively scheduled 07/19/17 by : Inspection of fusion mass L5-S1 removal of pedicle screw hardware bilaterally for screws. Laminectomies laminotomy discectomy L4 5 L5-S1. Instrumented fusion instrumented fusion with autologous bone graft L4 5 S1 bilaterally. Neuro lysis left L4 nerve root, for pre-operative diagnosis of instrumented L5- S1 fusion with spinal stenosis and loose hardware. Diet advanced as tolerated. Pain control transitioned from iv to oral medication. Dressings changed prior to discharge. Co-managed by medical team for history of bph, dm, and hypertension. Condition at Discharge: stable Discharge Disposition: home or self care Discharge instructions provided to patient/family: Yes Post discharge follow-up plan: follow up as per
--- NOTE | 2017-07-22 10:51 | PN- Medicine Consult ---
Assessment/PlanMedical Consult Assessment/Plan Assessment: Impression 76 year old man * s/p L5-S1 hardware removal, laminectomy/discectomy L4-5, L5-S1, fusion L4-5, L5-S1 and neurolysis of L4 left nerve root * HTN * DM - insulin dependent Plan: Plan -electrolytes have been adequately repleted previously -continue finger sticks and novolog sliding scale -encouraged incentive spirometry -continue losartan, coreg, hctz -pain control -no rash, no sign of shingles, valtrex was discontinued 07/21, if needed triamcinolone cream can be continued, however currently no rash DVT prophylaxis at all times Subjective Subjective: seen and examined doing well ambulatory with minimal discomfort no dyspnea, no cp Objective Last 24 Hrs of Vital Signs/I&O Vital Signs Date Time Temp Pulse Resp B/P B/P Pulse O2 O2 Flow FiO2 Mean Ox Delivery Rate 07/22 0842 71 125/67 / 0841 71 125/67 / 0841 71 125/67 / 0702 98.3 71 20 125/67 95 Room Air 07/21 2213 98.8 70 18 112/58 96 Room Air 05/ 2112 70 120/58 05/05 1438 68 104/56 05/05 1351 98.0 66 18 97/48 95 Room Air Intake & Output 07/22 1600 07/22 0800 07/22 0000 Intake Total 480 480 Output Total 325 600 Balance 155 -120 Intake, Oral 480 480 Output, Urine 325 600 Physical Exam Other Physical Findings: alert and awake sitting in a chair cardiac exam normal lung exam without adventitious sounds no edema Current Medications: Current Medications Sig/Milind Start time Last Medication Dose Route Stop Time Status Admin Acetaminophen 650 MG .STK-MED ONE 07/21 1627 DC PO 07/21 1628 Acetaminophen 650 MG Q4P PRN 07/19 1130 AC 07/21 PO 1630 Bisacodyl 10 MG DAILY NEEDED PRN 07/19 1130 AC [place] Calcium 600 MG BID 07/19 2100 AC 07/22 PO 0842 Carvedilol 25 MG BID 07/19 2100 AC 07/22 PO 0842 Cholecalciferol 1,000 IU DAILY 07/20 0900 AC 07/22 PO 0842 Cyclobenzaprine HCl 5 MG 4 TIMES/DAY PRN 07/20 0845 AC 07/22 PO 0307 Docusate Sodium 100 MG TID 07/19 1400 AC 07/22 PO 0842 Ezetimibe 10 MG DAILY 07/20 0900 AC 07/22 PO 0842 Gabapentin 300 MG Q8 07/20 1612 AC 07/22 PO 0600 Hydrochlorothiazide 25 MG DAILY 07/20 0900 AC 07/22 PO 0842 Insulin Aspart 0 TIDAC 07/19 1200 AC 07/21 SC 1630 Insulin Detemir 16 UNITS QPM 07/19 2100 AC 07/21 SC 2111 Losartan Potassium 100 MG DAILY 07/20 09 AC 07/22 PO 0841 Magnesium Hydroxide 30 ML .STK-MED ONE 07/21 2032 DC PO 07/21 203 Magnesium Hydroxide 30 ML Q8P PRN 07/19 1145 AC 07/21 PO 2111 Magnesium Oxide 400 MG BID 07/20 1030 AC 07/22 PO 0842 Morphine Sulfate 1 MG Q3P PRN 07/21 0715 AC 07/22 IV 0301 Multivitamins 1 TAB DAILY 07/20 0900 AC 07/22 Therapeutic PO 0842 Ondansetron HCl 4 MG Q6P PRN 07/19 1130 AC IV Oxycodone/ 1 TAB Q4P PRN 07/19 1130 AC Acetaminophen PO Oxycodone/ 2 TAB Q4P PRN 07/19 1130 AC 07/22 Acetaminophen PO 0600 Tamsulosin HCl 0.4 MG DAILY 07/20 1614 AC 07/22 PO 0841 Triamcinolone 1 JANNET BID 07/20 2100 AC 07/21 Acetonide TOP 2111 Trimethobenzamide HCl 200 MG Q6P PRN 07/19 1130 AC IM Results Last 24 Hrs Lab/Oj Results: na
== END 2017-07-22 14:36 | DRG 460 ==
LOC: SDA 02:18 → ENRESERV 12:32 → ENTRNSPT 13:17 → 2NB 13:23 → EDTRNSPT 13:27 → EDTRNSPTSTS 13:27 → CMPTRNSPT 13:48 → 2NB 07-22 14:36
PROVIDERS: Orthopaedic Surgery Orthopaedic Surgery of the Spine
PROC: 0SP304Z Removal of Internal Fixation Device from Lumbosacral Joint, Open Approach (ICD-10-PCS; principal; 2017-07-19)
PROC: 0SG3071 Fusion of Lumbosacral Joint with Autologous Tissue Substitute, Posterior Approach, Posterior Column, Open Approach (ICD-10-PCS; 2017-07-19)
PROC: 0SB20ZZ Excision of Lumbar Vertebral Disc, Open Approach (ICD-10-PCS; 2017-07-19)
PROC: 01NB0ZZ Release Lumbar Nerve, Open Approach (ICD-10-PCS; 2017-07-19)
DX: T84.226A Displacement of internal fixation device of vertebrae, initial encounter (principal); E11.8 Type 2 diabetes mellitus with unspecified complications; M48.061 Spinal stenosis, lumbar region without neurogenic claudication; Z98.1 Arthrodesis status; I10 Essential (primary) hypertension; Z79.4 Long term (current) use of insulin; G47.33 Obstructive sleep apnea (adult) (pediatric)
CPT/HCPCS: 36415; 36592; 72100; 82436; 87086; 97116-GO; 97161-GP; C1713; J0131; J0690; J1644; J3250; J3490; J7120